=== PATIENT | male | born 1945 | race American Indian/Alaskan Native ===

== ENCOUNTER 2017-12-31 16:57 | Inpatient (IN) | payer MEDICARE ==
[2017-12-31 16:57] VITALS: BMI 26.6
[2017-12-31] MEDS ORDERED: Enoxaparin 40 mg Syringe SC STA (18:10)
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
[2017-12-31 18:27] LABS: BASO # 0.2 K/uL (0.0-0.2); BASO % 1.9 % (0.0-2.0); EOS # 0.3 K/uL (0.0-0.7); EOS % 2.7 % (0.0-4.0); HEMOGLOBIN 11.8 g/dL (12.0-18.0); LYMPH # 2.8 K/uL (1.0-4.3); LYMPH % 24.1 % (20.0-40.0); MEAN CELL VOLUME 82.7 fL (80.0-94.0); MEAN CORPUSCULAR HEMOGLOBIN 27.8 pg (27.0-31.0); MEAN CORPUSCULAR HGB CONC 33.6 g/dL (33.0-37.0); MEAN PLATELET VOLUME 8.7 fL (7.2-11.7); MONO # 4.1 K/uL (0.0-0.8); MONO % 35.5 % (0.0-10.0); NEUT # 4.1 K/uL (1.8-7.0); NEUT % 35.8 % (50.0-75.0); NRBC % 0.2 % (0.0-2.0); PLATELET COUNT 323 K/uL (130-400); RBC 4.24 Mil/uL (4.40-5.90); RED CELL DISTRIBUTION WIDTH 31.8 % (11.5-14.5); WHITE BLOOD COUNT 11.4 K/uL (4.8-10.8)
[2017-12-31] MEDS ORDERED: Enoxaparin 100 mg Syringe ONE (18:33)
[2017-12-31 18:36] LABS: ALB/GLOB RATIO 0.7 (1.0-2.1); ALT/SGPT 16 U/L (21-72); AST/SGOT 23 U/L (17-59); BLOOD UREA NITROGEN 15 mg/dL (9-20); CALCIUM 8.6 mg/dl (8.6-10.4); GFR AFRICAN-AMERICAN > 60; GFR NON-AFRICAN AMERICAN > 60
[2017-12-31 18:39] LABS: INR 1.1; PROTHROMBIN TIME 13.1 SECONDS (9.7-12.2)
[2017-12-31 18:46] LABS: B-TYPE NATRIURETIC PEPTIDE 44.1 pg/mL (0-900)
[2017-12-31] MEDS ORDERED: Piperacillin/Tazobact 3.375 gm 100 ML IV STA (18:47)
--- NOTE | 2017-12-31 18:50 | RAD ---
PROCEDURE: CHEST RADIOGRAPH, 1 VIEW HISTORY: SOB COMPARISON: None available. FINDINGS: LUNGS: Clear. PLEURA: No pneumothorax or pleural fluid seen. CARDIOVASCULAR: Normal. OSSEOUS STRUCTURES: No significant abnormalities. VISUALIZED UPPER ABDOMEN: Normal. OTHER FINDINGS: None. IMPRESSION: No active disease.
[2017-12-31] MEDS ORDERED: Piperacillin/Tazobact 3.375 gm 100 ML IVPB ONE (19:00)
[2017-12-31 19:16] LABS: SQUAMOUS EPITHIAL < 1 /hpf (0-5); URINE BILIRUBIN NEGATIVE (NEGATIVE); URINE BLOOD NEGATIVE (NEGATIVE); URINE CLARITY Clear (Clear); URINE COLOR Colorless (YELLOW); URINE GLUCOSE (UA) NORMAL (Normal); URINE LEUKOCYTE ESTERASE NEG Leu/uL (Negative); URINE PROTEIN NEGATIVE (NEGATIVE); URINE UROBILINOGEN NORMAL mg/dL (0.2-1.0)
[2017-12-31 19:19] LABS: BASOPHIL 1 % (0-2); EOSINOPHIL 3 % (0-4); LYMPHOCYTE 30 % (20-40); MONOCYTE 37 % (0-10); NEUTROPHIL 27 % (50-75); PLATELET ESTIMATE NORMAL (NORMAL); REACTIVE LYMPHOCYTES 2 % (0-0); TOTAL CELLS COUNTED 100
[2017-12-31 19:22] LABS: OVALOCYTES SLIGHT
[2017-12-31 19:23] LABS: ANISOCYTOSIS MODERATE; POLYCHROMIC SLIGHT; SCHISTOCYTES SLIGHT; SICKLE CELLS SLIGHT
[2017-12-31 19:24] LABS: ACANTHOCYTES SLIGHT; BURR CELLS SLIGHT; SPHEROCYTES SLIGHT
[2017-12-31] MEDS ORDERED: Piperacillin/Tazobact 3.375 GM in Sodium Chloride 100 ML IVPB SCH (20:15)
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
[2017-12-31] MEDS ORDERED: Iodixanol 320 MG/ML 100 ML BOTTLE IV ONE (20:39)
[2018-01-01] MEDS: Piperacill/Tazo 3.375gm in Dex 3.375 GM/50 ML BAG IVPB SCH ×4 (00:13→18:57)
[2018-01-01 07:20] LABS: BASO # 0.2 K/uL (0.0-0.2); BASO % 1.7 % (0.0-2.0); EOS # 0.3 K/uL (0.0-0.7); EOS % 2.7 % (0.0-4.0); HEMOGLOBIN 10.9 g/dL (12.0-18.0); LYMPH # 2.7 K/uL (1.0-4.3); LYMPH % 26.1 % (20.0-40.0); MEAN CELL VOLUME 81.9 fL (80.0-94.0); MEAN CORPUSCULAR HEMOGLOBIN 28.1 pg (27.0-31.0); MEAN CORPUSCULAR HGB CONC 34.3 g/dL (33.0-37.0); MEAN PLATELET VOLUME 9.3 fL (7.2-11.7); MONO % 38.6 % (0.0-10.0); NEUT # 3.2 K/uL (1.8-7.0); NEUT % 30.9 % (50.0-75.0); NRBC % 0.1 % (0.0-2.0); PLATELET COUNT 294 K/uL (130-400); RBC 3.86 Mil/uL (4.40-5.90); RED CELL DISTRIBUTION WIDTH 32.2 % (11.5-14.5); WHITE BLOOD COUNT 10.3 K/uL (4.8-10.8)
[2018-01-01 07:55] LABS: ALB/GLOB RATIO 0.7 (1.0-2.1); ALBUMIN 3.7 g/dL (3.5-5.0); ALT/SGPT 12 U/L (21-72); AST/SGOT 22 U/L (17-59); BLOOD UREA NITROGEN 15 mg/dL (9-20); CALCIUM 8.2 mg/dl (8.6-10.4); GFR AFRICAN-AMERICAN > 60; GFR NON-AFRICAN AMERICAN > 60; HDL CHOLESTEROL 30 mg/dL (30-70)
[2018-01-01 08:02] LABS: LDL CHOLESTEROL 90 mg/dL (0-129)
--- NOTE | 2018-01-01 08:05 | CP.PCM.PN ---
<Janett Guerra - Last Filed: 01/01/18 14:22> Subjective - Date & Time of Evaluation Date of Evaluation: 01/01/18 Time of Evaluation: 12:45 - Subjective Subjective: PGY 2 Medicine Note- Dr. Mayra Maloney's service Patient seen and examined in no apparent acute distress. Patient had imaging studies performed. Patient admits to some lower extremity discomfort. Patient states that he occasionally has trouble ambulating at home due to heel related pain secondary to swelling; but is able to manage. He denies chest pain, palpitations, nausea, vomiting, headaches or dyspnea at this time. Objective - Vital Signs/Intake and Output Vital Signs (last 24 hours): Temp Pulse Resp BP Pulse Ox 0 F L 70 20 118/70 100 01/01/18 07:55 01/01/18 07:55 01/01/18 07:55 01/01/18 07:55 01/01/18 07:55 - Medications Medications: Current Medications Enoxaparin Sodium (Lovenox) 90 mg SC Q12 ERMA Furosemide (Lasix) 40 mg IVP DAILY [facility] Piperacillin Sod/Tazobactam Sod (Zosyn 3.375 Gm Iv Premix) 3.375 gm in 50 mls @ 100 mls/hr IVPB Q6H ERMA Last Admin: 01/01/18 06:11 Dose: 100 mls/hr Ketorolac Tromethamine (Toradol) 30 mg IV Q6 PRN PRN Reason: Pain, severe (8-10) Last Admin: 01/01/18 06:10 Dose: 30 mg Ketorolac Tromethamine (Toradol) 15 mg IVP Q6 PRN PRN Reason: Pain, moderate (4-7) Pantoprazole Sodium (Protonix Ec Tab) 40 mg PO DAILY [facility] Pneumococcal Polyvalent Vaccine (Pneumovax 23 Vaccine) 0.5 ml IM .ONCE ONE Stop: 01/02/18 10:01 Saccharomyces Boulardii (Florastor) 250 mg PO BID ERMA - Labs Labs: 01/01/18 07:07 01/01/18 07:07 PT 13.1 SECONDS (9.7-12.2) H 12/31/17 18:18 INR 1.1 12/31/17 18:18 APTT 30 SECONDS (21-34) 12/31/17 18:18 - Constitutional Appears: Non-toxic, No Acute Distress - Head Exam Head Exam: ATRAUMATIC, NORMAL INSPECTION - Eye Exam Eye Exam: EOMI, Normal appearance, PERRL - ENT Exam ENT Exam: Mucous Membranes Moist - Neck Exam Neck Exam: Full ROM - Respiratory Exam Respiratory Exam: Clear to Ausculation Bilateral, NORMAL BREATHING PATTERN - Cardiovascular Exam Cardiovascular Exam: +S1, +S2 Additional comments: occasional premature beats noted; no apparent audible murmur - GI/Abdominal Exam GI & Abdominal Exam: Soft, Normal Bowel Sounds - Extremities Exam Extremities Exam: Full ROM, Pedal Edema (2+ pitting edema noted extending from feet to approx 4-5 inches below the knee), Tenderness (with superficial palpation). absent: Normal Inspection - Back Exam Back Exam: Full ROM - Neurological Exam Neurological Exam: Alert, Awake, Oriented x3 - Psychiatric Exam Psychiatric exam: Normal Affect, Normal Mood - Skin Skin Exam: Dry. absent: Intact, Normal Color Additional comments: hyperkeratosis and hyperpigmentation of bilateral shins, dry; dressing noted, c/ d/i Assessment and Plan - Assessment and Plan (Free Text) Assessment: Chronic wound of extremity Assessment and Plan: Hx of DVT in lower extremity Afebrile, No-acute distress Rule out Osteomyelitis- No evidence of subcutaneous emphysema. Recommendations for further imaging suggested. Will consider Bone scan in light of contraindications for MRI. (Patient has metal rods in his leg) Podiatry consult, Dr Raymond. Follow-up recommendations. Nursing referral for wound care F/U Blood and Wound cultures On: Zosyn 3.375g IVPB Q6H Lasix 40mg IVP QD Ketorolac 15mg IVP Q6 PRN moderate pain Ketorolac 30mg IVP Q6H PRN severe pain Status: Acute Priority: High Chronic DVT Assessment and Plan: Venous Dopplers- left partial chronic , non- occlusive DVT of the left common femoral, femoral and popliteal veins. Mild valvular incompetence noted. Part of the study was limited due to swelling. No evidence of DVT in right lower extremity. Refer to complete report. Arterial dopplers- Normal Study Elevated D-Dimer 1148. Imaging: CTA PE Protocol- No apparent signs of PE. Per report, many of the distal pulmonary arteries are poorly visualized. Calcified tortuous aorta noted. Refer to complete report. Meds: Lovenox 90mg SC Q12H Status: Acute Priority: High Suspected Premature atrial beats Assessment and Plan: On Telemetry- Continue to monitor EKG: Sinus rhythm at approx 77 bpm, early signs of repolarization noted. No signs of atrial fibrillation or flutter noted. No ST segment changes noted. Refer to imaging. Labs/Diagnostics: Trop x1 NORMAL ProBNP NORMAL CXR: No active disease F/U ECHO Status: Acute Priority: High (4) Prophylactic measure Assessment and Plan: Contraindication to SCDs Lovenox 90mg SC Q12H Heart healthy diet Status: Acute Priority: Low [place], PGY 2 <Sagar Maloney - Last Filed: 01/01/18 15:07> Objective - Vital Signs/Intake and Output Vital Signs (last 24 hours): Temp Pulse Resp BP Pulse Ox 0 F L 70 20 122/70 100 01/01/18 07:55 01/01/18 08:00 01/01/18 07:55 01/01/18 09:30 01/01/18 07:55 - Medications Medications: Current Medications Enoxaparin Sodium (Lovenox) 90 mg SC Q12 [facility] Last Admin: 01/01/18 09:30 Dose: 90 mg Furosemide (Lasix) 40 mg IVP DAILY [facility] Last Admin: 01/01/18 09:30 Dose: 40 mg Piperacillin Sod/Tazobactam Sod (Zosyn 3.375 Gm Iv Premix) 3.375 gm in 50 mls @ 100 mls/hr IVPB Q6H [facility] Last Admin: 01/01/18 14:00 Dose: 100 mls/hr Ketorolac Tromethamine (Toradol) 30 mg IV Q6 PRN PRN Reason: Pain, severe (8-10) Last Admin: 01/01/18 12:22 Dose: 30 mg Ketorolac Tromethamine (Toradol) 15 mg IVP Q6 PRN PRN Reason: Pain, moderate (4-7) Pantoprazole Sodium (Protonix Ec Tab) 40 mg PO DAILY [facility] Last Admin: 01/01/18 09:30 Dose: 40 mg Pneumococcal Polyvalent Vaccine (Pneumovax 23 Vaccine) 0.5 ml IM .ONCE ONE Stop: 01/02/18 10:01 Saccharomyces Boulardii (Florastor) 250 mg PO BID [facility] Last Admin: 01/01/18 09:30 Dose: 250 mg - Labs Labs: 01/01/18 07:07 01/01/18 07:07 PT 13.1 SECONDS (9.7-12.2) H 12/31/17 18:18 INR 1.1 12/31/17 18:18 APTT 30 SECONDS (21-34) 12/31/17 18:18 Attending/Attestation - Attestation I have personally seen and examined this patient.: Yes I have fully participated in the care of the patient.: Yes I have reviewed all pertinent clinical information, including history, physical exam and plan: Yes Notes (Text): 01/01/18 14:54 Patient was seen and examined at 8 AM Also on ROS: Pain the bilateral lower legs and feet is controlled at this time. However, he explains that the pain is always present but could not describe the pain to me nor what makes it better or what makes it worse He has no paresthesias NO other complaints upon FULL ROS Also on Exam: Bilateral UE Radial Pulses are strong and equal Bilateral LE Pedal Pulses are NOT palpable Bilateral LE NON-pitting edema with Right > Left Bilateral LE thickened/hardened/darkened skin from the mid tibia to the feet Right LE Anterior and Medial Aspect are prior surgical scars/cratered areas with NO open wounds present Left LE superior to the Medial Malleoli there is a 1 cm shallow ulcer circular in shape on a bed of pink irregularly shaped skin (prior area of ulceration as per patient) F/U Bilateral LE Venous Doppler to rule out any DVTs: he has a history of Left Leg DVT in the past with stopping coumadin 1 year ago by his PMD F/U Bilateral LE Arterial Dopplers to help diagnose the possibility of Peripheral Arterial Disease as the possible cause of his LE pain F/U 2D Echocardiogram F/U Tibia/Fibula X Ray of Left Leg to see if there is any evidence of Osteomyelitis (Periosteal Elevation): we can NOT perform MRI due to metal hardware in the patients Right Leg from his injury while at work in 1983 F/U ESR and if elevated, then consider getting NM Bone Scan of Left Lower Leg/ Ankle on Wednesday01/03/18 to help rule out Osteomyelitis F/U PT evaluation and treatment for gait Sagar Maloney D.O.
[2018-01-01] MEDS: Pantoprazole 40 mg EC Tab PO SCH (09:30)
[2018-01-01] MEDS: Saccharomyces Boulardi 250 mg Cap PO SCH ×2 (09:30→18:57)
[2018-01-01] MEDS: Enoxaparin 100 mg Syringe SC SCH ×2 (09:30→21:24)
[2018-01-01 10:31] LABS: EOSINOPHIL 1 % (0-4); LYMPHOCYTE 26 % (20-40); MONOCYTE 36 % (0-10); NEUTROPHIL 36 % (50-75); PLATELET ESTIMATE NORMAL (NORMAL); REACTIVE LYMPHOCYTES 1 % (0-0); TOTAL CELLS COUNTED 100
[2018-01-01 10:32] LABS: ANISOCYTOSIS MARKED; HYPOCHROMIC SLIGHT; POLYCHROMIC SLIGHT
[2018-01-01 10:33] LABS: GIANT PLATELETS PRESENT; LARGE PLATELETS PRESENT; OVALOCYTES SLIGHT; POIKILOCYTOSIS SLIGHT; SCHISTOCYTES SLIGHT; TARGET CELLS SLIGHT
[2018-01-01 10:34] LABS: TOXIC GRANULATION PRESENT
--- NOTE | 2018-01-01 11:31 | CT ---
PROCEDURE: CT Chest with contrast (Pulmonary Angiogram) HISTORY: Elevated d-dimer; hx of DVT; tachy COMPARISON: None available. TECHNIQUE: Axial computed tomography images were obtained of the chest in the pulmonary arterial phase of enhancement. Coronal and sagittal reformatted images were created and reviewed. Intravenous contrast dose: 100 cc Visipaque 320 Radiation dose: Total exam DLP = 444.85 mGy-cm. This CT exam was performed using one or more of the following dose reduction techniques: Automated exposure control, adjustment of the mA and/or kV according to patient size, and/or use of iterative reconstruction technique. FINDINGS: PULMONARY ARTERIES: Unremarkable. No pulmonary embolism. The the visualized portions of the pulmonary trunk, right and left main, lobar, segmental and proximal subsegmental branches of the pulmonary arteries are relatively well opacified with no definitive filling defects seen to suggest underlying central pulmonary embolus. Note however that the distal branches of the pulmonary arteries are poorly delineated. Pulmonary trunk measures approximately 2.9 cm. AORTA: No acute findings. No thoracic aortic aneurysm. Ascending thoracic aorta measures approximately 3.68 cm and descending thoracic aorta measures approximately 2.865 cm. The the LUNGS: Multiple blebs and tiny bullous changes are present in both upper lung campo possibly representing para septal emphysema. Mild bibasilar atelectasis and or scarring changes. . PLEURAL SPACES: Unremarkable. No effusion or pneumothorax. HEART: Heart appears mildly enlarged. No significant pericardial effusion. LYMPH NODES: Few small nonspecific mediastinal lymph nodes are present. No significant hilar adenopathy. Lymphadenopathy. BONES, CHEST WALL: Minor multilevel degenerative spondylosis of the thoracic spine. OTHER FINDINGS: Small bilateral renal cysts are present. There is a more discrete hyperdense elliptical shaped partially exophytic structure arising from the posterolateral cortex upper/midpole right kidney that measures approximately 9.6 mm x 7 mm. This could represent hyperdense or hemorrhagic cyst however solid lesion not excluded. Followup ultrasound recommended to exclude any solid components. IMPRESSION: No evidence of acute the central pulmonary embolus. Note however that the distal pulmonary arteries are poorly delineated. Numerous below blebs and small bullous changes both upper lung campo. Rule out seen Bilateral renal cysts. There is also a small more discrete hyperdense structure arising from the posterolateral cortex upper/ midpole right kidney partially exophytic. This could represent hyperdense or hemorrhagic cyst however the possibility of a solid mass not excluded. Recommend follow-up ultrasound. Note that this report was placed in [facility] review folder followup.
--- NOTE | 2018-01-01 12:49 | VASCLAB ---
PROCEDURE: Lower Extremity Venous Duplex Exam. HISTORY: Swelling, history of DVT, elevated d-dimer PRIORS: None. TECHNIQUE: Bilateral common femoral, femoral, popliteal and posterior tibial, peroneal and great saphenous veins were evaluated. Flow was assessed with color Doppler, compressibility, assessment of phasic flow and augmentation response. Report prepared by ANGELA Oviedo FINDINGS: RIGHT: 1. Common Femoral Vein: 1.1. Compressibility - Fully compressible: Thrombus - None : Flow - Phasic: Augmentation -Normal: Reflux - Mild.1.02s 2. Femoral Vein: 2.1. Compressibility - Fully compressible: Thrombus - None : Flow - Phasic: Augmentation -Normal: Reflux - Mild.1.55s 3. Popliteal Vein: 3.1. Compressibility - Fully compressible: Thrombus - None : Flow - Phasic: Augmentation -Normal: Reflux - Mild.1.50s 4. Posterior Tibial Vein: 4.1. Unable to visualize due to swelling. 5. Peroneal Vein: 5.1. Unable to visualize due to swelling. 6. Great Saphenous Vein: 6.1. Compressibility - Fully compressible: Thrombus - None: Flow - Phasic: Augmentation - Normal: Reflux - None. LEFT: 1. Common Femoral Vein: 1.1. Compressibility - Partial: Thrombus - Chronic: Flow - Reduced : Augmentation -Normal: Reflux - None. 2. Femoral Vein: 2.1. Compressibility - Partial: Thrombus - Chronic: Flow - Reduced : Augmentation -Normal: Reflux - None. 3. Popliteal Vein: 3.1. Compressibility - Partial: Thrombus - Chronic : Flow - Reduced : Augmentation -Normal: Reflux - Mild.1.07s 4. Posterior Tibial Vein: 4.1. Compressibility - Fully compressible: Thrombus - None: Flow - Phasic: Augmentation -Normal: Reflux - None. 5. Peroneal Vein: 5.1. Compressibility - Fully compressible: Thrombus - None: Flow - Phasic: Augmentation -Normal: Reflux - None. 6. Great Saphenous Vein: 6.1. Compressibility - Fully compressible: Thrombus - None: Flow - Phasic: Augmentation - Normal: Reflux - None. OTHER FINDINGS: Findings were provided by the radiographic technologist, to Satish Puente at 12:00 p.m. IMPRESSION: Right: No evidence of deep or superficial vein thrombosis of the right lower extremity, for the imaged veins. Mild valvular incompetence noted. Left: Partial chronic, non occlusive, deep vein thrombosis of the left common femoral, femoral and popliteal veins. Mild valvular incompetence noted.
--- NOTE | 2018-01-01 12:50 | VASCLAB ---
PROCEDURE: HISTORY: Rest pain, Ulceration. COMPARISON: None available. TECHNIQUE: Grayscale and duplex Doppler evaluation of the bilateral common femoral, femoral, profunda femoral, popliteal, posterior tibial, anterior tibial and dorsalis pedis arteries was performed. Report prepared by ANGELA Oviedo FINDINGS: RIGHT LOWER EXTREMITY: * Common Femoral Artery: Peak Systolic Velocity - 109: Doppler Waveform: Triphasic.: Plaque description - Calcific * Profunda Femoral Artery: Peak Systolic Velocity - 91: Doppler Waveform: Biphasic.: Plaque description - * Femoral Artery o Proximal Segment: Peak Systolic Velocity - 127: Doppler Waveform: Triphasic.: Plaque description - Calcific o Middle Segment: Peak Systolic Velocity - 149: Doppler Waveform: Triphasic.: Plaque description - Calcific o Distal Segment: Peak Systolic Velocity - 85: Doppler Waveform: Triphasic.: Plaque description - Calcific * Popliteal Artery o Proximal Segment: Peak Systolic Velocity - 117: Doppler Waveform: Monophasic: Plaque description - o Middle Segment: Peak Systolic Velocity - 69: Doppler Waveform: Monophasic: Plaque description - o Distal Segment: Peak Systolic Velocity - 73: Doppler Waveform: Monophasic: Plaque description - * Posterior Tibial Artery: Unable to visualize due to swelling. * Anterior Tibial Artery: Peak Systolic Velocity - 101: Doppler Waveform: Monophasic: Plaque description - LEFT LOWER EXTREMITY: * Common Femoral Artery: Peak Systolic Velocity - 105: Doppler Waveform: Triphasic.: Plaque description - Calcific * Profunda Femoral Artery: Peak Systolic Velocity - 86: Doppler Waveform: Biphasic.: Plaque description - * Femoral Artery o Proximal Segment: Peak Systolic Velocity - 109: Doppler Waveform: Triphasic.: Plaque description - Calcific o Middle Segment: Peak Systolic Velocity - 136: Doppler Waveform: Triphasic.: Plaque description - Calcific o Distal Segment: Peak Systolic Velocity - 102: Doppler Waveform: Monophasic: Plaque description - Calcific * Popliteal Artery o Proximal Segment: Peak Systolic Velocity - 92: Doppler Waveform: Monophasic: Plaque description - o Middle Segment: Peak Systolic Velocity - 102: Doppler Waveform: Monophasic: Plaque description - o Distal Segment: Peak Systolic Velocity - 98: Doppler Waveform: Monophasic: Plaque description - * Posterior Tibial Artery: Peak Systolic Velocity - 155: Doppler Waveform: Monophasic: Plaque description - * Anterior Tibial Artery: Peak Systolic Velocity - 104: Doppler Waveform: Monophasic: Plaque description - OTHER FINDINGS: None. IMPRESSION: The major arteries in bilateral lower extremities appear patent however, with monophasic arterial waveforms.
--- NOTE | 2018-01-01 13:12 | RAD ---
PROCEDURE: Radiographs of the left tibia and fibula. HISTORY: Left Lower Leg Ulcer. R rule out early signs of osteomyelitis COMPARISON: None available. TECHNIQUE: Frontal and lateral views obtained. FINDINGS: BONES: No evidence of acute displaced fracture nor dislocation. The osseous structures appear intact. No obvious cortical destructive changes. JOINT SPACES: Joint spaces relatively preserved. OTHER FINDINGS: Nonspecific calcifications are seen in the distal medial soft tissues. No evidence of subcutaneous emphysema consider followup MRI if early osteomyelitis IMPRESSION: No evidence of acute displaced fracture nor dislocation. No obvious cortical destructive changes. Nonspecific soft tissue calcifications adjacent to the medial on distal tibia. Consider followup MRI if early osteomyelitis suspected clinically.
--- NOTE | 2018-01-01 14:13 | CP.PCM.CON ---
History of Present Illness - History of Present Illness History of Present Illness: 72 year old male with PMHx asthma, HTN, multiple DVTs seen at bedside after being admitted through ED yesterday for recent onset of left lower leg pain and edema. Patient states that the pain has been increasing over the last several days. He denies pain to his posterior calf and says that the pain is mostly at the site of a wound on his anterior left leg and also near his ankle when he is walking. Patient also states that he has noticed his left leg swelling up over the last week or so. He denies any history of CHF but states that he has had multiple DVTs in the past. Denies any further pedal complaints at this time and states that his pain is well controlled. Denies any recent onset of N/V/F/C/CP/ SOB/D/posterior calf pain when squeezed or hemoptysis. Denies any current at home medications. NKDA. Previous surgical history of right leg reconstruction following a work related incident, wound debridement of left leg as well as venous filter placement. Review of Systems - Review of Systems Review of Systems: As per HPI Past Patient History - Infectious Disease Hx of Infectious Diseases: None - Past Medical History & Family History Past Medical History?: Yes - Past Social History Smoking Status: Light Smoker < 10 Cigarettes Daily - CARDIAC Hx Hypertension: Yes (no meds) - PULMONARY Hx Asthma: Yes (when younger) - NEUROLOGICAL Hx Neurological Disorder: No - HEENT Hx HEENT Problems: No - RENAL Hx Chronic Kidney Disease: No - ENDOCRINE/METABOLIC Hx Endocrine Disorders: No - HEMATOLOGICAL/ONCOLOGICAL Hx Blood Transfusions: No - INTEGUMENTARY Hx Dermatological Problems: Yes Other/Comment: " INJURY TO LEFT LEG IN 1983 WHEN HE FELL THRU A MANHOLE COVER. AFTER ACCIDENT HE DEVELOPED A DVT WITH CHRONIC SWELLING TO LEFT LEG." (PER MED RECORD.) - MUSCULOSKELETAL/RHEUMATOLOGICAL Hx Falls: No - GASTROINTESTINAL Hx Gastrointestinal Disorders: No - GENITOURINARY/GYNECOLOGICAL Hx Genitourinary Disorders: No - PSYCHIATRIC Hx Substance Use: No - SURGICAL HISTORY Other/Comment: skin grafdt right ankle - ANESTHESIA Hx Anesthesia: Yes Hx Anesthesia Reactions: No Hx Malignant Hyperthermia: No Has any member of the family had a problem w/ anesthesia?: No Meds Allergies/Adverse Reactions: Allergies Allergy/AdvReac Type Severity Reaction Status Date / Time No Known Allergies Allergy Verified 12/31/17 17:01 - Medications Medications: Current Medications Enoxaparin Sodium (Lovenox) 90 mg SC Q12 [facility] Last Admin: 01/01/18 09:30 Dose: 90 mg Furosemide (Lasix) 40 mg IVP DAILY [facility] Last Admin: 01/01/18 09:30 Dose: 40 mg Piperacillin Sod/Tazobactam Sod (Zosyn 3.375 Gm Iv Premix) 3.375 gm in 50 mls @ 100 mls/hr IVPB Q6H [facility] Last Admin: 01/01/18 06:11 Dose: 100 mls/hr Ketorolac Tromethamine (Toradol) 30 mg IV Q6 PRN PRN Reason: Pain, severe (8-10) Last Admin: 01/01/18 12:22 Dose: 30 mg Ketorolac Tromethamine (Toradol) 15 mg IVP Q6 PRN PRN Reason: Pain, moderate (4-7) Pantoprazole Sodium (Protonix Ec Tab) 40 mg PO DAILY [facility] Last Admin: 01/01/18 09:30 Dose: 40 mg Pneumococcal Polyvalent Vaccine (Pneumovax 23 Vaccine) 0.5 ml IM .ONCE ONE Stop: 01/02/18 10:01 Saccharomyces Boulardii (Florastor) 250 mg PO BID [facility] Last Admin: 01/01/18 09:30 Dose: 250 mg Physical Exam - Constitutional Appears: Well, Non-toxic, No Acute Distress - Extremities Exam Additional comments: LE focused exam: Vasc: DP/PT pulses weakly palpable secondary to b/l edema. CFT < 3 seconds to all digits. Skin temperature warm to warm from proximal to distal. Neuro: Epicritic and protective sensation grossly intact b/l Derm: Cicatrix noted to anterior right leg secondary to previous traumatic event with reconstruction. Healing wound noted to anterior portion of right leg. No clinical signs of infection noted to wound and no open noted at wound site. Wound appears stable at this time. Venous stasis ulceration measuring roughly 1 cm x 1 cm x 0.1 cm noted to medial aspect of left leg. No malodor, no drainage, no erythema, no other clinical signs of infection noted. No probe to bone, undermining, tracking or tunneling appreciated. MSK: POP to ulceration of left leg. Cicatrix noted to right leg secondary to traumatic reconstruction of leg. Otherwise ROM WNLfor age at all major joints without pain - Neurological Exam Neurological exam: Alert, Oriented x3 - Psychiatric Exam Psychiatric exam: Normal Affect, Normal Mood Results - Vital Signs Recent Vital Signs: Last Vital Signs Temp 0 F L 01/01/18 07:55 Pulse 70 01/01/18 08:00 Resp 20 01/01/18 07:55 BP 122/70 01/01/18 09:30 Pulse Ox 100 01/01/18 07:55 - Labs Result Diagrams: 01/01/18 07:07 01/01/18 07:07 Labs: Laboratory Results - last 24 hr 12/31/17 12/31/17 12/31/17 18:18 18:18 18:18 WBC 11.4 H D RBC 4.24 L Hgb 11.8 L Hct 35.0 MCV 82.7 MCH 27.8 MCHC 33.6 RDW 31.8 H Plt Count 323 MPV 8.7 Neut % (Auto) 35.8 L Lymph % (Auto) 24.1 [place] % (Auto) 35.5 H Eos % (Auto) 2.7 Baso % (Auto) 1.9 Neut # (Auto) 4.1 Lymph # (Auto) 2.8 [place] # (Auto) 4.1 H Eos # (Auto) 0.3 Baso # (Auto) 0.2 Neutrophils % (Manual) 27 L Lymphocytes % (Manual) 30 Reactive Lymphs % 2 H Monocytes % (Manual) 37 H Eosinophils % (Manual) 3 Basophils % (Manual) 1 Toxic Granulation Platelet Estimate Normal Large Platelets Giant Platelets Polychromasia Slight Hypochromasia (manual) Poikilocytosis (manual Anisocytosis (manual) Moderate Spherocytes Slight Sickle Cells Slight Target Cells Ovalocytes Slight Molly Cells Slight Acanthocytes (Spur) Slight Schistocytes Slight PT 13.1 H INR 1.1 APTT 30 D-Dimer, Quantitative 1148 H Sodium 141 Potassium 4.1 Chloride 104 Carbon Dioxide 24 Anion Gap 17 BUN 15 Creatinine 1.0 Est GFR ( Amer) > 60 Est GFR (Non-Af Amer) > 60 Random Glucose 94 Calcium 8.6 Total Bilirubin 0.4 AST 23 ALT 16 L D Alkaline Phosphatase 79 Troponin I < 0.0120 NT-Pro-B Natriuret Pep 44.1 Total Protein 9.9 H Albumin 4.0 Globulin 5.8 H Albumin/Globulin Ratio 0.7 L Triglycerides Cholesterol LDL Cholesterol Direct HDL Cholesterol Free T4 TSH 3rd Generation Urine Color Urine Clarity Urine pH Ur Specific [place] Urine Protein Urine Glucose (UA) Urine Ketones Urine Blood Urine Nitrate Urine Bilirubin Urine Urobilinogen Ur Leukocyte Esterase Urine WBC (Auto) Ur Squamous Epith Cells 12/31/17 01/01/18 01/01/18 19:11 07:07 07:07 WBC 10.3 RBC 3.86 L Hgb 10.9 L Hct 31.6 L MCV 81.9 MCH 28.1 MCHC 34.3 RDW 32.2 H Plt Count 294 MPV 9.3 Neut % (Auto) 30.9 L Lymph % (Auto) 26.1 [place] % (Auto) 38.6 H Eos % (Auto) 2.7 Baso % (Auto) 1.7 Neut # (Auto) 3.2 Lymph # (Auto) 2.7 [place] # (Auto) 4.0 H Eos # (Auto) 0.3 Baso # (Auto) 0.2 Neutrophils % (Manual) 36 L Lymphocytes % (Manual) 26 Reactive Lymphs % 1 H Monocytes % (Manual) 36 H Eosinophils % (Manual) 1 Basophils % (Manual) Toxic Granulation Present Platelet Estimate Normal Large Platelets Present Giant Platelets Present Polychromasia Slight Hypochromasia (manual) Slight Poikilocytosis (manual Slight Anisocytosis (manual) Marked Spherocytes Sickle Cells Target Cells Slight Ovalocytes Slight [place] Cells Acanthocytes (Spur) Schistocytes Slight PT INR APTT D-Dimer, Quantitative Sodium 142 Potassium 3.6 Chloride 102 Carbon Dioxide 24 Anion Gap 19 BUN 15 Creatinine 1.1 Est GFR ( Amer) > 60 Est GFR (Non-Af Amer) > 60 Random Glucose 90 Calcium 8.2 L Total Bilirubin 0.5 AST 22 ALT 12 L D Alkaline Phosphatase 68 Troponin I NT-Pro-B Natriuret Pep Total Protein 8.6 H Albumin 3.7 Globulin 5.0 H Albumin/Globulin Ratio 0.7 L Triglycerides 50 D Cholesterol 136 LDL Cholesterol Direct 90 HDL Cholesterol 30 Free T4 TSH 3rd Generation 3.89 Urine Color Colorless Urine Clarity Clear Urine pH 6.0 Ur Specific [place] 1.004 Urine Protein Negative Urine Glucose (UA) Normal Urine Ketones Negative Urine Blood Negative Urine Nitrate Negative Urine Bilirubin Negative Urine Urobilinogen Normal Ur Leukocyte Esterase Neg Urine WBC (Auto) < 1 Ur Squamous Epith Cells < 1 01/01/18 07:07 WBC RBC Hgb Hct MCV MCH MCHC RDW Plt Count MPV Neut % (Auto) Lymph % (Auto) [place] % (Auto) Eos % (Auto) Baso % (Auto) Neut # (Auto) Lymph # (Auto) [place] # (Auto) Eos # (Auto) Baso # (Auto) Neutrophils % (Manual) Lymphocytes % (Manual) Reactive Lymphs % Monocytes % (Manual) Eosinophils % (Manual) Basophils % (Manual) Toxic Granulation Platelet Estimate Large Platelets Giant Platelets Polychromasia Hypochromasia (manual) Poikilocytosis (manual Anisocytosis (manual) Spherocytes Sickle Cells Target Cells Ovalocytes [place] Cells Acanthocytes (Spur) Schistocytes PT INR APTT D-Dimer, Quantitative Sodium Potassium Chloride Carbon Dioxide Anion Gap BUN Creatinine Est GFR ( Amer) Est GFR (Non-Af Amer) Random Glucose Calcium Total Bilirubin AST ALT Alkaline Phosphatase Troponin I NT-Pro-B Natriuret Pep Total Protein Albumin Globulin Albumin/Globulin Ratio Triglycerides Cholesterol LDL Cholesterol Direct HDL Cholesterol Free T4 1.20 TSH 3rd Generation Urine Color Urine Clarity Urine pH Ur Specific [place] Urine Protein Urine Glucose (UA) Urine Ketones Urine Blood Urine Nitrate Urine Bilirubin Urine Urobilinogen Ur Leukocyte Esterase Urine WBC (Auto) Ur Squamous Epith Cells Assessment & Plan - Assessment and Plan (Free Text) Assessment: 72 year old male with PMHx asthma, HTN, multiple DVTs seen at bedside for clinically non-infected venous stasis ulceration of left leg Plan: Patient seen and evaluated at bedside Charts, labs and vitals reviewed Afebrile, absent leukocytosis D-dimer elevated 1148 Multiple DVTs of LLE seen on venous duplex Continue treatment per Medicine team It is thought that venous stasis ulceration of left leg is secondary to edematous changes. No compressive wound care therapy will be applied at this time given the fact that patient has DVTs Continue with diuresis per medicine for decrease in b/l LE edema Xrays reviewed and found to be unremarkable Arterial duplex findings appreciated No plans for surgical intervention at this time Wound site stable per podiatry and patient can follow up with Dr. Raymond upon discharge Podiatry will continue with local wound care to ulceration site while patient remains in house, DSD - Date & Time Date: 01/01/18 Time: 14:26
--- NOTE | 2018-01-01 17:29 | RAD ---
PROCEDURE: Bilateral feet dated 01/01/2018 HISTORY: Assess for osteomyelitis left ankle/foot COMPARISON: Correlation made with prior radiographs left foot 04/19/2015. Re- demonstrated correlation also made with concurrent radiographs of the left tibia and fibula. FINDINGS: BONES: Right foot findings: The current study reveals chronic on deformities of the distal tibia and fibula possibly representing sequela of old trauma and/or infection with thumb apparent fusion changes of the distal fibula and tibia. Multi articular degenerative osteoarthritis. Extension deformities at the MTP joints limit evaluation of the proximal phalanges of. Minor hallux valgus deformity. Left foot findings: The current study reveals no evidence of acute displaced fracture nor dislocation. The osseous structures appear intact. No definitive cortical destructive changes are identified. Again seen are nonspecific soft tissue calcifications within the medial distal soft tissues. Extension deformities of the MTP joints noted limiting evaluation of the proximal phalanges. Mild hallux valgus deformity. If symptoms persist or early osteomyelitis suspected clinically consider followup MRI. IMPRESSION: Chronic posttraumatic and/or post infectious changes involving the distal right tibia and fibula. Soft tissue calcifications are within distal medial soft tissues of the left tibia fibula with no definitive cortical destructive changes. Recommend followup MRI if early osteomyelitis suspected clinically.
[2018-01-02] MEDS: Piperacill/Tazo 3.375gm in Dex 3.375 GM/50 ML BAG IVPB SCH ×4 (00:59→18:30)
--- NOTE | 2018-01-02 07:35 | CP.PCM.PN ---
Subjective - Date & Time of Evaluation Date of Evaluation: 01/02/18 Time of Evaluation: 07:31 - Subjective Subjective: Podiatry progress note- Dr. Raymond 72 year old male with PMHx asthma, HTN, multiple DVTs seen at bedside after being admitted through ED yesterday for recent onset of left lower leg pain and edema. Patient is AAO x 3 and NAD, resting comfortably in bed at time of visit. Denies any acute overnight events and states that pain is well controlled. Denies any further pedal complaints at this time. Denies any recent N/V/F/C/CP/ SOB/D/posterior calf pain when squeezed Objective - Vital Signs/Intake and Output Vital Signs (last 24 hours): Temp Pulse Resp BP Pulse Ox 97.7 F 84 20 153/68 H 96 01/01/18 23:15 01/01/18 23:56 01/01/18 23:15 01/01/18 23:15 01/01/18 23:15 - Medications Medications: Current Medications Enoxaparin Sodium (Lovenox) 90 mg SC Q12 [facility] Last Admin: 01/01/18 21:24 Dose: 90 mg Furosemide (Lasix) 40 mg IVP DAILY [facility] Last Admin: 01/01/18 09:30 Dose: 40 mg Piperacillin Sod/Tazobactam Sod (Zosyn 3.375 Gm Iv Premix) 3.375 gm in 50 mls @ 100 mls/hr IVPB Q6H [facility] Last Admin: 01/02/18 06:05 Dose: 100 mls/hr Ketorolac Tromethamine (Toradol) 30 mg IV Q6 PRN PRN Reason: Pain, severe (8-10) Last Admin: 01/02/18 05:19 Dose: 30 mg Ketorolac Tromethamine (Toradol) 15 mg IVP Q6 PRN PRN Reason: Pain, moderate (4-7) Last Admin: 01/01/18 21:23 Dose: 15 mg Mupirocin (Bactroban Ointment) 0 gm TOP ONCE ONE Stop: 01/02/18 10:01 Pantoprazole Sodium (Protonix Ec Tab) 40 mg PO DAILY [facility] Last Admin: 01/01/18 09:30 Dose: 40 mg Pneumococcal Polyvalent Vaccine (Pneumovax 23 Vaccine) 0.5 ml IM .ONCE ONE Stop: 01/02/18 10:01 Saccharomyces Boporshadii (Florastor) 250 mg PO BID [facility] Last Admin: 01/01/18 18:57 Dose: 250 mg - Labs Labs: 01/01/18 07:07 01/01/18 07:07 PT 13.1 SECONDS (9.7-12.2) H 12/31/17 18:18 INR 1.1 12/31/17 18:18 APTT 30 SECONDS (21-34) 12/31/17 18:18 - Constitutional Appears: Well, Non-toxic, No Acute Distress - Extremities Exam Additional comments: LE focused exam: Vasc: DP/PT pulses weakly palpable secondary to b/l edema. Edema noted to be improved today b/l. CFT < 3 seconds to all digits. Skin temperature warm to warm from proximal to distal. Neuro: Epicritic and protective sensation grossly intact b/l Derm: Cicatrix noted to anterior right leg secondary to previous traumatic event with reconstruction. Healing wound that wasn noted to anterior portion of right leg yesterday is now open with minimal bleeding. No erythema, purulence, drainage, malodor or other clinical signs of infection appreciated. No clinical signs of infection noted to wound Wound appears stable at this time. Venous stasis ulceration measuring roughly 1 cm x 1 cm x 0.1 cm noted to medial aspect of left leg. No malodor, no drainage, no erythema, no other clinical signs of infection noted. No probe to bone, undermining, tracking or tunneling appreciated. MSK: POP to ulceration of left leg. Cicatrix noted to right leg secondary to traumatic reconstruction of leg. Otherwise ROM WNL for age at all major joints without pain - Neurological Exam Neurological Exam: Alert, Awake, Oriented x3 - Psychiatric Exam Psychiatric exam: Normal Affect, Normal Mood Assessment and Plan - Assessment and Plan (Free Text) Assessment: 72 year old male with PMHx asthma, HTN, multiple DVTs seen at bedside for clinically non-infected venous stasis ulceration of left leg and open wound of right leg, both stable and clinically uninfected Plan: Patient seen and evaluated at bedside Charts, labs and vitals reviewed Plan discussed with attending Dr. Raymond Afebrile, absent leukocytosis D-dimer elevated 1148 on admission Multiple DVTs of LLE seen on venous duplex Continue treatment per Medicine team It is thought that venous stasis ulceration of left leg is secondary to edematous changes. No compressive wound care therapy will be applied at this time given the fact that patient has DVTs Continue with diuresis per medicine for decrease in b/l LE edema Xrays reviewed and found to be unremarkable Arterial duplex findings appreciated No plans for surgical intervention at this time Wound sites stable per podiatry and patient can follow up with Dr. Raymond upon discharge Podiatry will continue with local wound care to ulceration site while patient remains in house, Mupirocin, xeroform, DSD b/l
[2018-01-02 08:10] LABS: BASO # 0.2 K/uL (0.0-0.2); BASO % 2.4 % (0.0-2.0); EOS # 0.3 K/uL (0.0-0.7); HEMOGLOBIN 10.7 g/dL (12.0-18.0); LYMPH # 2.8 K/uL (1.0-4.3); LYMPH % 32.6 % (20.0-40.0); MEAN CELL VOLUME 82.3 fL (80.0-94.0); MEAN CORPUSCULAR HGB CONC 33.9 g/dL (33.0-37.0); MEAN PLATELET VOLUME 9.1 fL (7.2-11.7); MONO # 3.2 K/uL (0.0-0.8); MONO % 37.4 % (0.0-10.0); NEUT # 2.1 K/uL (1.8-7.0); NEUT % 24.6 % (50.0-75.0); NRBC % 0.1 % (0.0-2.0); PLATELET COUNT 285 K/uL (130-400); RBC 3.83 Mil/uL (4.40-5.90); RED CELL DISTRIBUTION WIDTH 32.1 % (11.5-14.5); WHITE BLOOD COUNT 8.6 K/uL (4.8-10.8)
[2018-01-02 08:51] LABS: ALB/GLOB RATIO 0.7 (1.0-2.1); ALBUMIN 3.5 g/dL (3.5-5.0); ALT/SGPT 16 U/L (21-72); AST/SGOT 27 U/L (17-59); BLOOD UREA NITROGEN 20 mg/dL (9-20); CALCIUM 8.1 mg/dl (8.6-10.4); GFR AFRICAN-AMERICAN > 60; GFR NON-AFRICAN AMERICAN 60
[2018-01-02] MEDS: Enoxaparin 100 mg Syringe SC SCH ×2 (09:25→21:12)
[2018-01-02] MEDS: Saccharomyces Boulardi 250 mg Cap PO SCH ×2 (09:25→18:30)
[2018-01-02] MEDS: Pantoprazole 40 mg EC Tab PO SCH (09:25)
[2018-01-02 09:40] LABS: BANDS 1 % (0-2); LYMPHOCYTE 32 % (20-40); METAMYELOCYTE 1 % (0-0); MONOCYTE 40 % (0-10); NEUTROPHIL 26 % (50-75); PLATELET ESTIMATE NORMAL (NORMAL); TOTAL CELLS COUNTED 100
[2018-01-02 09:42] LABS: ANISOCYTOSIS MODERATE; POIKILOCYTOSIS SLIGHT
[2018-01-02 09:43] LABS: GIANT PLATELETS PRESENT; HYPOCHROMIC SLIGHT; LARGE PLATELETS PRESENT; OVALOCYTES SLIGHT; POLYCHROMIC SLIGHT; TEARDROP CELLS SLIGHT
[2018-01-02 09:44] LABS: SCHISTOCYTES SLIGHT
[2018-01-02] MEDS ORDERED: Pneumococcal 23-Valent Vaccine IM ONE (10:00)
--- NOTE | 2018-01-02 10:21 | CP.PCM.PN ---
<Theresa Guerrahanklars - Last Filed: 01/02/18 19:46> Subjective - Date & Time of Evaluation Date of Evaluation: 01/02/18 Time of Evaluation: 09:12 - Subjective Subjective: PGY 2 Medicine Note- Dr. Gloria's service Patient seen and examined in no apparent acute distress. Patient has some occasional lower extremity discomfort. He denies chest pain, palpitations, nausea, vomiting, bowel changes, headaches or dyspnea at this time. He anticipates returning to work. Objective - Vital Signs/Intake and Output Vital Signs (last 24 hours): Temp Pulse Resp BP Pulse Ox 97.7 F 80 20 159/75 H 100 01/02/18 08:09 01/02/18 08:09 01/02/18 08:09 01/02/18 09:25 01/02/18 08:09 - Medications Medications: Current Medications Enoxaparin Sodium (Lovenox) 90 mg SC Q12 [facility] Last Admin: 01/02/18 09:25 Dose: 90 mg Furosemide (Lasix) 40 mg IVP DAILY [facility] Last Admin: 01/02/18 09:25 Dose: 40 mg Piperacillin Sod/Tazobactam Sod (Zosyn 3.375 Gm Iv Premix) 3.375 gm in 50 mls @ 100 mls/hr IVPB Q6H [facility] Last Admin: 01/02/18 06:05 Dose: 100 mls/hr Ketorolac Tromethamine (Toradol) 30 mg IV Q6 PRN PRN Reason: Pain, severe (8-10) Last Admin: 01/02/18 05:19 Dose: 30 mg Ketorolac Tromethamine (Toradol) 15 mg IVP Q6 PRN PRN Reason: Pain, moderate (4-7) Last Admin: 01/01/18 21:23 Dose: 15 mg Pantoprazole Sodium (Protonix Ec Tab) 40 mg PO DAILY [facility] Last Admin: 01/02/18 09:25 Dose: 40 mg Saccharomyces Boulardii (Florastor) 250 mg PO BID [facility] Last Admin: 01/02/18 09:25 Dose: 250 mg - Labs Labs: 01/02/18 07:59 01/02/18 07:59 PT 13.1 SECONDS (9.7-12.2) H 12/31/17 18:18 INR 1.1 12/31/17 18:18 APTT 30 SECONDS (21-34) 12/31/17 18:18 - Constitutional Appears: Non-toxic, No Acute Distress - Head Exam Head Exam: ATRAUMATIC - Eye Exam Eye Exam: EOMI, Normal appearance - ENT Exam ENT Exam: Mucous Membranes Moist - Neck Exam Neck Exam: Full ROM - Respiratory Exam Respiratory Exam: NORMAL BREATHING PATTERN. absent: Wheezes - Cardiovascular Exam Cardiovascular Exam: +S1, +S2 Additional comments: occasional premature beats noted; no apparent audible murmur - GI/Abdominal Exam GI & Abdominal Exam: Soft, Normal Bowel Sounds - Extremities Exam Extremities Exam: Full ROM, Tenderness. absent: Pedal Edema Additional comments: Full ROM, wrapped bilaterally c/d/i; Pedal Edema (2+ pitting edema noted extending from feet to approx 4-5 inches below the knee), Tenderness (with superficial palpation). absent: Normal Inspection - Back Exam Back Exam: Full ROM - Neurological Exam Neurological Exam: Awake, Oriented x3 - Psychiatric Exam Psychiatric exam: Normal Affect, Normal Mood - Skin Skin Exam: Dry, Warm. absent: Normal Color Additional comments: hyperkeratosis and hyperpigmentation of bilateral shins, dry; dressing noted, c/ d/i Assessment and Plan - Assessment and Plan (Free Text) Assessment: Chronic wound of extremity Assessment and Plan: Hx of DVT in lower extremity Afebrile, No-acute distress Rule out Osteomyelitis- No evidence of subcutaneous emphysema. Recommendations for further imaging suggested. ESR elevated. Will perform Bone Scan due to contraindications for MRI. (Patient has metal rods in his leg) Podiatry consult, Dr Raymond. Wound sites deemed stable. No current surgical indication. Will monitor in house. Nursing referral for wound care F/U Blood cultures Wound cultures- Staph aureus. On: Zosyn 3.375g IVPB Q6H (Started 01/02/18) On Florastor as well. Lasix 40mg IVP increased to BID Ketorolac 15mg IVP Q6 PRN moderate pain Ketorolac 30mg IVP Q6H PRN severe pain PT Eval and Treat Status: Acute Priority: High Chronic DVT Assessment and Plan: Venous Dopplers- left partial chronic , non- occlusive DVT of the left common femoral, femoral and popliteal veins. Mild valvular incompetence noted. Part of the study was limited due to swelling. No evidence of DVT in right lower extremity. Refer to complete report. Arterial dopplers- Normal Study Elevated D-Dimer 1148. Imaging: CTA PE Protocol- No apparent signs of PE. Per report, many of the distal pulmonary arteries are poorly visualized. Calcified tortuous aorta noted. Refer to complete report. Meds: Lovenox 90mg SC Q12H Status: Acute Priority: High Suspected Premature atrial beats Assessment and Plan: On Telemetry- Continue to monitor EKG: Sinus rhythm at approx 77 bpm, early signs of repolarization noted. No signs of atrial fibrillation or flutter noted. No ST segment changes noted. Refer to imaging. Labs/Diagnostics: Trop x1 NORMAL ProBNP NORMAL CXR: No active disease F/U ECHO Status: Acute Priority: High (4) Prophylactic measure Assessment and Plan: Contraindication to SCDs Lovenox 90mg SC Q12H Heart healthy diet PT Eval and Treat Status: Acute Priority: Low Mari, PGY 2 <Surinder Gloria H - Last Filed: 01/03/18 07:56> Objective - Vital Signs/Intake and Output Vital Signs (last 24 hours): Temp Pulse Resp BP Pulse Ox 98.2 F 70 20 124/71 98 01/02/18 23:20 01/03/18 04:01 01/02/18 23:20 01/02/18 23:20 01/02/18 23:20 - Medications Medications: Current Medications Enoxaparin Sodium (Lovenox) 90 mg SC Q12 [facility] Last Admin: 01/02/18 21:12 Dose: 90 mg Furosemide (Lasix) 40 mg IVP Q12 [facility] Last Admin: 01/02/18 21:13 Dose: 40 mg Piperacillin Sod/Tazobactam Sod (Zosyn 3.375 Gm Iv Premix) 3.375 gm in 50 mls @ 100 mls/hr IVPB Q6H [facility] Last Admin: 01/03/18 06:06 Dose: 100 mls/hr Ketorolac Tromethamine (Toradol) 30 mg IV Q6 PRN PRN Reason: Pain, severe (8-10) Last Admin: 01/02/18 13:25 Dose: 30 mg Ketorolac Tromethamine (Toradol) 15 mg IVP Q6 PRN PRN Reason: Pain, moderate (4-7) Last Admin: 01/01/18 21:23 Dose: 15 mg Pantoprazole Sodium (Protonix Ec Tab) 40 mg PO DAILY [facility] Last Admin: 01/02/18 09:25 Dose: 40 mg Saccharomyces Boulardii (Florastor) 250 mg PO BID [facility] Last Admin: 01/02/18 18:30 Dose: 250 mg - Labs Labs: 01/02/18 07:59 01/02/18 07:59 PT 13.1 SECONDS (9.7-12.2) H 12/31/17 18:18 INR 1.1 12/31/17 18:18 APTT 30 SECONDS (21-34) 12/31/17 18:18 Attending/Attestation - Attestation I have personally seen and examined this patient.: Yes I have fully participated in the care of the patient.: Yes I have reviewed all pertinent clinical information, including history, physical exam and plan: Yes Notes (Text): 01/03/18 07:46 Medical attending: Patient was seen and examined by me. Agree with the above note by the resident. This is a very nice man who many years ago had a work related injury. Since then he has had chronic DVTs and has been on anticogulation for sometime until one year ago after it was stopped. When I saw him he had already been seen by podiatry and his bilateral feet had been carefully wrapped. His XRAYs of the feet were negative for osteomylitis, however given what the patient tells us - it has been a long time of pain, we will check an bone scan this comming Wednesday. We would like to check an MRI, however he has old metal in his lower extremity ever since he had that fall realted injury. thank you Surinder Gloria
--- NOTE | 2018-01-02 13:17 | CARD ---
APPROVED REPORT EXAM: Two-dimensional and M-mode echocardiogram with Doppler and color Doppler. Other Information Quality : GoodRhythm : INDICATION Abnormal EKG/Arrhythmia 2D DIMENSIONS IVSd1.2 (0.7-1.1cm)Aortic Root (2D)3.2 (2.0-3.7cm) LVDd4.9 (3.9-5.9cm)PWd1.2 (0.7-1.1cm) LVDs3.0 (2.5-4.0cm)FS (%) 37.4 % LVEF (%)67.3 (>50%) M-Mode DIMENSIONS Left Atrium (MM)4.65 (2.5-4.0cm)Aortic Root3.20 (2.2-3.7cm) Aortic Cusp Exc.1.29 (1.5-2.0cm) Mitral Valve MV E Krztkbro16.6cm/sMV A Fmyjctrz03.3cm/sE/A ratio0.8 TDI E/Lateral E'0.0E/Medial E'0.0 Tricuspid Valve TR Peak Zsoyjbjz005cf/sTR Peak Gr.[id number] LEFT VENTRICLE The left ventricle is normal size. There is normal left ventricular wall thickness. The left ventricular function is normal. The left ventricular ejection fraction is within the normal range. No regional wall motion abnormalities noted. Transmitral Doppler flow pattern is Grade I-abnormal relaxation pattern. LA PRESSURE NORMAL No left ventricle thrombus noted on this study. There is no ventricular septal defect visualized. There is no left ventricular aneurysm. There is no mass noted in the left ventricle. RIGHT VENTRICLE The right ventricle is normal size. There is normal right ventricular wall thickness. The right ventricular systolic function is normal. ATRIA The left atrium size is normal. The right atrium size is normal. The interatrial septum is intact with no evidence for an atrial septal defect. AORTIC VALVE The aortic valve is normal in structure and function. No aortic regurgitation is present. There is no aortic valvular stenosis. There is no aortic valvular vegetation. MITRAL VALVE The mitral valve is normal in structure and function. There is no evidence of mitral valve prolapse. There is no mitral valve stenosis. There is no mitral valve regurgitation noted. TRICUSPID VALVE The tricuspid valve is normal in structure and function. There is mild tricuspid regurgitation. Right ventricular systolic pressure is estimated at 30-40 mmHg. There is no tricuspid valve prolapse or vegetation. There is no tricuspid valve stenosis. PULMONIC VALVE The pulmonary valve is normal in structure and function. There is no pulmonic valvular regurgitation. There is no pulmonic valvular stenosis. GREAT VESSELS The aortic root is normal in size. The ascending aorta is normal in size. The pulmonary artery is normal. The IVC is normal in size and collapses >50% with inspiration. PERICARDIAL EFFUSION The pericardium appears normal. There is no pleural effusion. <Conclusion> The left ventricular function is normal. The left ventricular ejection fraction is within the normal range. No regional wall motion abnormalities noted.
[2018-01-03] MEDS: Piperacill/Tazo 3.375gm in Dex 3.375 GM/50 ML BAG IVPB SCH ×3 (01:11→12:50)
[2018-01-03 08:09] LABS: BASO # 0.1 K/uL (0.0-0.2); BASO % 1.9 % (0.0-2.0); EOS # 0.3 K/uL (0.0-0.7); EOS % 3.5 % (0.0-4.0); HEMOGLOBIN 11.4 g/dL (12.0-18.0); LYMPH # 2.9 K/uL (1.0-4.3); LYMPH % 39.5 % (20.0-40.0); MEAN CELL VOLUME 81.7 fL (80.0-94.0); MEAN CORPUSCULAR HEMOGLOBIN 28.6 pg (27.0-31.0); MONO # 2.8 K/uL (0.0-0.8); MONO % 38.4 % (0.0-10.0); NEUT # 1.2 K/uL (1.8-7.0); NEUT % 16.7 % (50.0-75.0); NRBC % 0.2 % (0.0-2.0); PLATELET COUNT 330 K/uL (130-400); RBC 3.99 Mil/uL (4.40-5.90); RED CELL DISTRIBUTION WIDTH 31.6 % (11.5-14.5); WHITE BLOOD COUNT 7.2 K/uL (4.8-10.8)
[2018-01-03 08:25] LABS: ALB/GLOB RATIO 0.7 (1.0-2.1); ALBUMIN 3.8 g/dL (3.5-5.0); ALT/SGPT 9 U/L (21-72); AST/SGOT 28 U/L (17-59); BLOOD UREA NITROGEN 18 mg/dL (9-20); CALCIUM 8.2 mg/dl (8.6-10.4); GFR AFRICAN-AMERICAN > 60; GFR NON-AFRICAN AMERICAN > 60
--- NOTE | 2018-01-03 08:45 | CP.PCM.PN ---
<Kimo Donnelly - Last Filed: 01/03/18 14:25> Subjective - Date & Time of Evaluation Date of Evaluation: 01/03/18 Time of Evaluation: 08:42 - Subjective Subjective: PGY-[address] Gloria. No acute events overnight. Patient was about to go for Bone Scan (MRI contraindicated 11/05 to metal in right leg). Patient stated he still has pain in his leg b/l He stated his swelling has decreased slightly since admission. He denied chest pain, shortness of breath, bleeding, nausea, vomiting. Objective - Vital Signs/Intake and Output Vital Signs (last 24 hours): Temp Pulse Resp BP Pulse Ox 98 F 83 20 151/90 H 99 01/03/18 08:18 01/03/18 08:18 01/03/18 08:18 01/03/18 08:18 01/03/18 08:18 - Medications Medications: Current Medications Enoxaparin Sodium (Lovenox) 90 mg SC Q12 [facility] Last Admin: 01/02/18 21:12 Dose: 90 mg Furosemide (Lasix) 40 mg IVP Q12 [facility] Last Admin: 01/02/18 21:13 Dose: 40 mg Piperacillin Sod/Tazobactam Sod (Zosyn 3.375 Gm Iv Premix) 3.375 gm in 50 mls @ 100 mls/hr IVPB Q6H [facility] Last Admin: 01/03/18 06:06 Dose: 100 mls/hr Ketorolac Tromethamine (Toradol) 30 mg IV Q6 PRN PRN Reason: Pain, severe (8-10) Last Admin: 01/02/18 13:25 Dose: 30 mg Ketorolac Tromethamine (Toradol) 15 mg IVP Q6 PRN PRN Reason: Pain, moderate (4-7) Last Admin: 01/01/18 21:23 Dose: 15 mg Pantoprazole Sodium (Protonix Ec Tab) 40 mg PO DAILY [facility] Last Admin: 01/02/18 09:25 Dose: 40 mg Saccharomyces Boulardii (Florastor) 250 mg PO BID [facility] Last Admin: 01/02/18 18:30 Dose: 250 mg - Labs Labs: 01/03/18 07:47 01/03/18 07:47 PT 13.1 SECONDS (9.7-12.2) H 12/31/17 18:18 INR 1.1 12/31/17 18:18 APTT 30 SECONDS (21-34) 12/31/17 18:18 - Additional Findings Additional findings: - Constitutional Appears: Non-toxic, No Acute Distress - Head Exam Head Exam: ATRAUMATIC - Eye Exam Eye Exam: EOMI, Normal appearance - ENT Exam ENT Exam: Mucous Membranes Moist - Neck Exam Neck Exam: Full ROM - Respiratory Exam Respiratory Exam: NORMAL BREATHING PATTERN. absent: Wheezes - Cardiovascular Exam Cardiovascular Exam: +S1, +S2 Additional comments: occasional premature beats noted; no apparent audible murmur - GI/Abdominal Exam GI & Abdominal Exam: Soft, Normal Bowel Sounds - Extremities Exam Extremities Exam: Full ROM, Tenderness. absent: Pedal Edema Additional comments: Full ROM, wrapped bilaterally c/d/i; Pedal Edema (2+ pitting edema noted extending from feet to approx 4-5 inches below the knee), Tenderness (with superficial palpation). absent: Normal Inspection - Back Exam Back Exam: Full ROM - Neurological Exam Neurological Exam: Awake, Oriented x3 - Psychiatric Exam Psychiatric exam: Normal Affect, Normal Mood - Skin Skin Exam: Dry, Warm. 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 Afebrile, No-acute distress Rule out Osteomyelitis- No evidence of subcutaneous emphysema. Recommendations for further imaging suggested. ESR elevated. Will perform Bone Scan due to contraindications for MRI. (Patient has metal rods in his leg) Podiatry consult, Dr Raymond. * venous stasis ulceration of left leg is secondary to edematous changes * No compressive wound care therapy will be applied at this time given the fact that patient has DVTs * No plans for surgical intervention at this time * Podiatry will continue with local wound care to ulceration site while patient remains in house, Mupirocin, xeroform, DSD b/l * Wound sites stable per podiatry and patient can follow up with Dr. Raymond upon discharge Nursing referral for wound care Blood cultures NEGATIVE up to date Wound cultures POSITIVE for MRSA Imaging: Tibia/Fibula XRAY: No evidence of acute displaced fracture nor dislocation. No obvious cortical destructive changes. Nonspecific soft tissue calcifications. Foot b/l XRAY: Chronic posttraumatic and/or post infectious changes involving the distal right tibia and fibula. Soft tissue calcifications are within distal medical soft tissues of left tibia fibula with no definitive cortical destructive changes. Venous Dopplers - Left partial chronic , non- occlusive DVT of the left common femoral, femoral and popliteal veins. Mild valvular incompetence noted. Part of the study was limited due to swelling. No evidence of DVT in right lower extremity. Refer to complete report. F/U Bone Scan: Meds: Zosyn 3.375g IVPB Q6H (Started 01/02/18 - Stopped 01/03/18 due to poor sensitivity) Vancomycin 500mg IVP Q12H (started 01/03/18) On Florastor as well. Lasix 40mg IVP increased to BID Ketorolac 15mg IVP Q6 PRN moderate pain Ketorolac 30mg IVP Q6H PRN severe pain PT Eval and Treat Status: Acute Priority: High Chronic DVT Assessment and Plan: Venous Dopplers- left partial chronic , non- occlusive DVT of the left common femoral, femoral and popliteal veins. Mild valvular incompetence noted. Part of the study was limited due to swelling. No evidence of DVT in right lower extremity. Refer to complete report. Arterial dopplers- Normal Study Elevated D-Dimer 1148. Consult Vascular Surgery, Dr Castillo for possible surgical intervention. Will follow recs. Imaging: CTA PE Protocol- No apparent signs of PE. Per report, many of the distal pulmonary arteries are poorly visualized. Calcified tortuous aorta noted. Refer to complete report. Meds: Lovenox 90mg SC Q12H Status: Acute Priority: High Suspected Premature atrial beats Assessment and Plan: On Telemetry- Continue to monitor EKG: Sinus rhythm at approx 77 bpm, early signs of repolarization noted. No signs of atrial fibrillation or flutter noted. No ST segment changes noted. Refer to imaging. Labs/Diagnostics: Trop x1 NORMAL ProBNP NORMAL CXR: No active disease ECHO: Left ventricular function is normal. Left Ventricular EF is normal. No regional wall motion abnormalities noted. Status: Acute Priority: High (4) Prophylactic measure Assessment and Plan: Contraindication to SCDs Lovenox 90mg SC Q12H Heart healthy diet PT Eval and Treat Status: Acute Priority: Low <Surinder Gloria H - Last Filed: 01/03/18 15:37> Objective - Vital Signs/Intake and Output Vital Signs (last 24 hours): Temp Pulse Resp BP Pulse Ox 98 F 70 20 157/72 H 99 01/03/18 08:18 01/03/18 13:26 01/03/18 08:18 01/03/18 10:55 01/03/18 08:18 Intake and Output: 01/03/18 01/03/18 06:59 18:59 Intake Total 450 Balance 450 - Medications Medications: Current Medications Enoxaparin Sodium (Lovenox) 90 mg SC Q12 [facility] Last Admin: 01/03/18 10:56 Dose: 90 mg Furosemide (Lasix) 40 mg IVP Q12 [facility] Last Admin: 01/03/18 10:55 Dose: 40 mg Vancomycin HCl 500 mg/ Sodium (Chloride) 100 mls @ 67 mls/hr IVPB Q12H ERMA PRN Reason: Protocol Stop: 01/08/18 16:01 Ketorolac Tromethamine (Toradol) 30 mg IV Q6 PRN PRN Reason: Pain, severe (8-10) Last Admin: 01/03/18 10:55 Dose: 30 mg Ketorolac Tromethamine (Toradol) 15 mg IVP Q6 PRN PRN Reason: Pain, moderate (4-7) Last Admin: 01/01/18 21:23 Dose: 15 mg Pantoprazole Sodium (Protonix Ec Tab) 40 mg PO DAILY [facility] Last Admin: 01/03/18 10:56 Dose: 40 mg Saccharomyces Boulardii (Florastor) 250 mg PO BID [facility] Last Admin: 01/03/18 10:56 Dose: 250 mg - Labs Labs: 01/03/18 07:47 01/03/18 07:47 PT 13.1 SECONDS (9.7-12.2) H 12/31/17 18:18 INR 1.1 12/31/17 18:18 APTT 30 SECONDS (21-34) 12/31/17 18:18 Attending/Attestation - Attestation I have personally seen and examined this patient.: Yes I have fully participated in the care of the patient.: Yes I have reviewed all pertinent clinical information, including history, physical exam and plan: Yes Notes (Text): Medical attending: Patient was seen and examined by me. Agree with the above note by the resident. When we saw the patient he had done the first part of the bone scan and pending second part. The patient did not report acute changes. Still has ongoing pain in lower extremity. He reports to us that the diureses does help - he has noted improvment in the left foot's edema as well as right raymundo edema. However he also said the edema in the right foot and left raymundo was unchanged from before. thank you Surinder Gloria
[2018-01-03 09:44] LABS: ANISOCYTOSIS MARKED; EOSINOPHIL 4 % (0-4); LYMPHOCYTE 39 % (20-40); MONOCYTE 35 % (0-10); NEUTROPHIL 21 % (50-75); PLATELET ESTIMATE NORMAL (NORMAL); POIKILOCYTOSIS SLIGHT; REACTIVE LYMPHOCYTES 1 % (0-0); TOTAL CELLS COUNTED 100
[2018-01-03 09:45] LABS: OVALOCYTES SLIGHT; TARGET CELLS SLIGHT
[2018-01-03] MEDS: Saccharomyces Boulardi 250 mg Cap PO SCH ×2 (10:56→17:31)
[2018-01-03] MEDS: Pantoprazole 40 mg EC Tab PO SCH (10:56)
[2018-01-03] MEDS: Enoxaparin 100 mg Syringe SC SCH ×2 (10:56→21:16)
--- NOTE | 2018-01-03 15:00 | CP.PCM.PN ---
Subjective - Date & Time of Evaluation Date of Evaluation: 01/03/18 Time of Evaluation: 11:30 - Subjective Subjective: Podiatry Progress Note- Dr. Raymond 72 year old male with PMHx asthma, HTN, multiple DVTs seen bedside this AM for f /u of b/l venous stasis ulcerations. Pt is seen resting comfortably in bed at time of visit. Does report some occasional pain to the ulcerations of both legs but well-controlled with medication. Denies f/n/v/c/sob/cp/weakness or dizziness at this time. Objective - Vital Signs/Intake and Output Vital Signs (last 24 hours): Temp Pulse Resp BP Pulse Ox 98 F 70 20 157/72 H 99 01/03/18 08:18 01/03/18 13:26 01/03/18 08:18 01/03/18 10:55 01/03/18 08:18 Intake and Output: 01/03/18 01/03/18 06:59 18:59 Intake Total 450 Balance 450 - Medications Medications: Current Medications Enoxaparin Sodium (Lovenox) 90 mg SC Q12 [facility] Last Admin: 01/03/18 10:56 Dose: 90 mg Furosemide (Lasix) 40 mg IVP Q12 [facility] Last Admin: 01/03/18 10:55 Dose: 40 mg Vancomycin HCl 500 mg/ Sodium (Chloride) 100 mls @ 67 mls/hr IVPB Q12H ERMA PRN Reason: Protocol Stop: 01/08/18 16:01 Ketorolac Tromethamine (Toradol) 30 mg IV Q6 PRN PRN Reason: Pain, severe (8-10) Last Admin: 01/03/18 10:55 Dose: 30 mg Ketorolac Tromethamine (Toradol) 15 mg IVP Q6 PRN PRN Reason: Pain, moderate (4-7) Last Admin: 01/01/18 21:23 Dose: 15 mg Pantoprazole Sodium (Protonix Ec Tab) 40 mg PO DAILY [facility] Last Admin: 01/03/18 10:56 Dose: 40 mg Saccharomyces Boulardii (Florastor) 250 mg PO BID [facility] Last Admin: 01/03/18 10:56 Dose: 250 mg - Labs Labs: 01/03/18 07:47 01/03/18 07:47 PT 13.1 SECONDS (9.7-12.2) H 12/31/17 18:18 INR 1.1 12/31/17 18:18 APTT 30 SECONDS (21-34) 12/31/17 18:18 - Constitutional Appears: Non-toxic, No Acute Distress - Extremities Exam Extremities Exam: absent: Calf Tenderness Additional comments: LE focused exam: Vasc: DP/PT pulses weakly palpable secondary to b/l edema. Edema noted to be improved today b/l. CFT < 3 seconds to all digits. Skin temperature warm to warm from proximal to distal. Neuro: Epicritic and protective sensation grossly intact b/l Derm: Cicatrix noted to anterior right leg secondary to previous traumatic event with reconstruction. Healing wound that wasn noted to anterior portion of right leg yesterday is now open with minimal bleeding. No erythema, purulence, drainage, malodor or other clinical signs of infection appreciated. No clinical signs of infection noted to wound Wound appears stable at this time. Venous stasis ulceration measuring roughly 1 cm x 1 cm x 0.1 cm noted to medial aspect of left leg. No malodor, no drainage, no erythema, no other clinical signs of infection noted. No probe to bone, undermining, tracking or tunneling appreciated. MSK: POP to ulceration of left leg. Cicatrix noted to right leg secondary to traumatic reconstruction of leg. Otherwise ROM WNL for age at all major joints without pain - Neurological Exam Neurological Exam: Alert, Awake, Oriented x3 - Psychiatric Exam Psychiatric exam: Normal Affect, Normal Mood Assessment and Plan - Assessment and Plan (Free Text) Assessment: 72 year old male with PMHx asthma, HTN, multiple DVTs seen at bedside for clinically non-infected venous stasis ulceration of left leg and open wound of right leg, both stable and clinically uninfected Plan: Pt s/e at the bedside Plan discussed with attending Dr. Raymnod Chart labs and vitals reviewed: afebrile, no leukocytosis D-dimer elevated 1148 on admission Multiple DVTs of LLE seen on venous duplex Continue treatment per Medicine team It is thought that venous stasis ulceration of left leg is secondary to edematous changes. No compressive wound care therapy will be applied at this time given the fact that patient has DVTs Continue with diuresis per medicine for decrease in b/l LE edema LE Xrays reviewed and found to be unremarkable Arterial duplex findings appreciated No plans for surgical intervention at this time Wound sites stable per podiatry and patient can follow up with Dr. Raymond upon discharge f/u LE bone scan as ordered by primary team Podiatry will continue with local wound care to ulceration site while patient remains in house, Mupirocin, xeroform, DSD b/l
--- NOTE | 2018-01-03 16:12 | NM ---
PROCEDURE: Three-phase bone scan HISTORY: Leg edema, chronic Elias the wounds. COMPARISON: 01/01/2018 left tibia and fibula. 01/01/2018 bilateral ankles and feet. 04/23/2015 bilateral tibia and fibula. TECHNIQUE: Following administration of 23.6 miCu of Tc MDP multiplanar whole body images were obtained. FINDINGS: Flow component: Increased flow to the visualize left lower extremity including calf, ankle and foot Blood pool component: Increased accumulation of radionuclide within the soft tissues of the left lower extremity and focal increased uptake in the right tibia Delayed images at 3:00: Retention of radionuclide right distal tibia Other findings: None. IMPRESSION: Findings consistent with cellulitis. No evidence of acute osteomyelitis. Increased uptake distal right tibia abort on immediate blood pool study and delayed images. The absence of increased flow to the right tibia makes the diagnosis of acute osteomyelitis substantially less likely. There are plain film radiographic findings distal right tibia and fibula consistent with prior trauma, the findings are consistent with a chronic, indolent osseous process.
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
--- NOTE | 2018-01-04 07:05 | CP.PCM.PN ---
Subjective - Date & Time of Evaluation Date of Evaluation: 01/04/18 Time of Evaluation: 10:58 - Subjective Subjective: Progress Note for Dr. Gloria Patient seen and examined at bedside in cheerful disposition. Patient states he is doing well and is tolerating pain well. Patient denies fever, chills, nausea , vomiting. Patient states he did the CT scan today. awaiting results. Objective - Vital Signs/Intake and Output Vital Signs (last 24 hours): Temp Pulse Resp BP Pulse Ox 97.7 F 96 H 20 142/70 96 01/03/18 23:05 01/03/18 23:05 01/03/18 23:05 01/03/18 23:05 01/03/18 23:05 Intake and Output: 01/04/18 01/04/18 06:59 18:59 Intake Total 500 Output Total 600 Balance -100 - Medications Medications: Current Medications Enoxaparin Sodium (Lovenox) 90 mg SC Q12 [facility] Last Admin: 01/03/18 21:16 Dose: 90 mg Furosemide (Lasix) 40 mg IVP Q12 [facility] Last Admin: 01/03/18 21:16 Dose: 40 mg Vancomycin HCl 500 mg/ Sodium (Chloride) 100 mls @ 67 mls/hr IVPB Q12H [facility] PRN Reason: Protocol Stop: 01/08/18 16:01 Last Admin: 01/04/18 04:23 Dose: 67 mls/hr Ketorolac Tromethamine (Toradol) 30 mg IV Q6 PRN PRN Reason: Pain, severe (8-10) Last Admin: 01/04/18 00:44 Dose: 30 mg Ketorolac Tromethamine (Toradol) 15 mg IVP Q6 PRN PRN Reason: Pain, moderate (4-7) Last Admin: 01/01/18 21:23 Dose: 15 mg Mupirocin (Bactroban Ointment) 0 gm TOP BID [facility] Pantoprazole Sodium (Protonix Ec Tab) 40 mg PO DAILY [facility] Last Admin: 01/03/18 10:56 Dose: 40 mg Saccharomyces Boulardii (Florastor) 250 mg PO BID [facility] Last Admin: 01/03/18 17:31 Dose: 250 mg - Labs Labs: 01/03/18 07:47 01/03/18 07:47 PT 13.1 SECONDS (9.7-12.2) H 12/31/17 18:18 INR 1.1 12/31/17 18:18 APTT 30 SECONDS (21-34) 12/31/17 18:18 - Constitutional Appears: Non-toxic, No Acute Distress - Head Exam Head Exam: ATRAUMATIC, NORMAL INSPECTION, NORMOCEPHALIC - Eye Exam Eye Exam: EOMI, Normal appearance - ENT Exam ENT Exam: Mucous Membranes Moist, Normal Exam - Neck Exam Neck Exam: Full ROM, Normal Inspection - Respiratory Exam Respiratory Exam: Clear to Ausculation Bilateral, NORMAL BREATHING PATTERN - Cardiovascular Exam Cardiovascular Exam: REGULAR RHYTHM, +S1, +S2 - GI/Abdominal Exam GI & Abdominal Exam: Soft. absent: Tenderness - Rectal Exam Rectal Exam: NORMAL INSPECTION - Extremities Exam Extremities Exam: Full ROM Additional comments: 1+ pitting edema mottled and hyperkeratosis of lower extremities. left and right anterior leg covered in dressings. Wounds are pink and clean. PT pulses palpable in right lower extremity. Left lower extremity PT and DP pulses were difficult to palpate - Neurological Exam Neurological Exam: Alert, Awake, CN II-XII Intact - Psychiatric Exam Psychiatric exam: Normal Affect, Normal Mood - Skin Skin Exam: Dry, Intact, Normal Color, Warm - Additional Findings Additional findings: - Head Exam Head Exam: ATRAUMATIC - Eye Exam Eye Exam: EOMI, Normal appearance - ENT Exam ENT Exam: Mucous Membranes Moist - Neck Exam Neck Exam: Full ROM - Respiratory Exam Respiratory Exam: NORMAL BREATHING PATTERN. absent: Wheezes - Cardiovascular Exam Cardiovascular Exam: +S1, +S2 Additional comments: occasional premature beats noted; no apparent audible murmur - GI/Abdominal Exam GI & Abdominal Exam: Soft, Normal Bowel Sounds - Extremities Exam Extremities Exam: Full ROM, Tenderness. absent: Pedal Edema Additional comments: Full ROM, wrapped bilaterally c/d/i; Pedal Edema (2+ pitting edema noted extending from feet to approx 4-5 inches below the knee), Tenderness (with superficial palpation). absent: Normal Inspection - Back Exam Back Exam: Full ROM - Neurological Exam Neurological Exam: Awake, Oriented x3 - Psychiatric Exam Psychiatric exam: Normal Affect, Normal Mood - Skin Skin Exam: Dry, Warm. 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 Afebrile, No-acute distress Rule out Osteomyelitis- No evidence of subcutaneous emphysema. Recommendations for further imaging suggested. ESR elevated. Will perform Bone Scan due to contraindications for MRI. (Patient has metal rods in his leg) Podiatry consult, Dr Raymond. * venous stasis ulceration of left leg is secondary to edematous changes * No compressive wound care therapy will be applied at this time given the fact that patient has DVTs * No plans for surgical intervention at this time * Podiatry will continue with local wound care to ulceration site while patient remains in house, Mupirocin, xeroform, DSD b/l * Wound sites stable per podiatry and patient can follow up with Dr. Raymond upon discharge Nursing referral for wound care Blood cultures NEGATIVE up to date Wound cultures POSITIVE for MRSA Imaging: Tibia/Fibula XRAY: No evidence of acute displaced fracture nor dislocation. No obvious cortical destructive changes. Nonspecific soft tissue calcifications. Foot b/l XRAY: Chronic posttraumatic and/or post infectious changes involving the distal right tibia and fibula. Soft tissue calcifications are within distal medical soft tissues of left tibia fibula with no definitive cortical destructive changes. Venous Dopplers - Left partial chronic , non- occlusive DVT of the left common femoral, femoral and popliteal veins. Mild valvular incompetence noted. Part of the study was limited due to swelling. No evidence of DVT in right lower extremity. Refer to complete report. Bone Scan: negative for osteomyelitis f/u CTA ileofemoral runoff: f/u CLAIR PVR: Meds: Zosyn 3.375g IVPB Q6H (Started 01/02/18 - Stopped 01/03/18 due to poor sensitivity) Vancomycin 500mg IVP Q12H (started 01/03/18) On Florastor as well. Lasix 40mg IVP increased to BID Ketorolac 15mg IVP Q6 PRN moderate pain Ketorolac 30mg IVP Q6H PRN severe pain PT Eval and Treat Status: Acute Priority: High Chronic DVT Assessment and Plan: Venous Dopplers- left partial chronic , non- occlusive DVT of the left common femoral, femoral and popliteal veins. Mild valvular incompetence noted. Part of the study was limited due to swelling. No evidence of DVT in right lower extremity. Refer to complete report. Arterial dopplers- Normal Study Elevated D-Dimer 1148. Consult Vascular Surgery, Dr Castillo: surgical team waiting for CLAIR/PVR and CTA ileofemoral runoff for further evaluation. Imaging: CTA PE Protocol- No apparent signs of PE. Per report, many of the distal pulmonary arteries are poorly visualized. Calcified tortuous aorta noted. Refer to complete report. Meds: Lovenox 90mg SC Q12H Status: Acute Priority: High Suspected Premature atrial beats Assessment and Plan: On Telemetry- Continue to monitor EKG: Sinus rhythm at approx 77 bpm, early signs of repolarization noted. No signs of atrial fibrillation or flutter noted. No ST segment changes noted. Refer to imaging. Labs/Diagnostics: Trop x1 NORMAL ProBNP NORMAL CXR: No active disease ECHO: Left ventricular function is normal. Left Ventricular EF is normal. No regional wall motion abnormalities noted. (4) Prophylactic measure Assessment and Plan: Contraindication to SCDs Lovenox 90mg SC Q12H Heart healthy diet PT Eval and Treat
[2018-01-04 07:35] LABS: BASO # 0.1 K/uL (0.0-0.2); BASO % 1.7 % (0.0-2.0); EOS # 0.3 K/uL (0.0-0.7); EOS % 3.5 % (0.0-4.0); HEMOGLOBIN 11.1 g/dL (12.0-18.0); LYMPH # 2.8 K/uL (1.0-4.3); MEAN CELL VOLUME 81.7 fL (80.0-94.0); MEAN CORPUSCULAR HEMOGLOBIN 28.1 pg (27.0-31.0); MEAN CORPUSCULAR HGB CONC 34.4 g/dL (33.0-37.0); MEAN PLATELET VOLUME 8.7 fL (7.2-11.7); MONO # 2.7 K/uL (0.0-0.8); MONO % 37.6 % (0.0-10.0); NEUT # 1.3 K/uL (1.8-7.0); NEUT % 18.2 % (50.0-75.0); PLATELET COUNT 336 K/uL (130-400); RBC 3.97 Mil/uL (4.40-5.90); RED CELL DISTRIBUTION WIDTH 31.5 % (11.5-14.5); WHITE BLOOD COUNT 7.3 K/uL (4.8-10.8)
[2018-01-04 08:22] LABS: ALB/GLOB RATIO 0.7 (1.0-2.1); ALBUMIN 3.8 g/dL (3.5-5.0); ALT/SGPT 25 U/L (21-72); AST/SGOT 31 U/L (17-59); BLOOD UREA NITROGEN 19 mg/dL (9-20); CALCIUM 7.7 mg/dl (8.6-10.4); GFR AFRICAN-AMERICAN > 60; GFR NON-AFRICAN AMERICAN > 60
[2018-01-04 08:40] LABS: ANISOCYTOSIS MARKED; BANDS 1 % (0-2); EOSINOPHIL 3 % (0-4); LYMPHOCYTE 40 % (20-40); METAMYELOCYTE 1 % (0-0); MONOCYTE 32 % (0-10); NEUTROPHIL 23 % (50-75); OVALOCYTES SLIGHT; PLATELET ESTIMATE NORMAL (NORMAL); POIKILOCYTOSIS SLIGHT; TOTAL CELLS COUNTED 100
[2018-01-04 08:41] LABS: TARGET CELLS SLIGHT
[2018-01-04] MEDS: Enoxaparin 100 mg Syringe SC SCH ×2 (10:25→22:20)
[2018-01-04] MEDS: Saccharomyces Boulardi 250 mg Cap PO SCH ×2 (10:26→17:06)
[2018-01-04] MEDS: Pantoprazole 40 mg EC Tab PO SCH (10:26)
--- NOTE | 2018-01-04 11:10 | CP.PCM.PN ---
Subjective - Date & Time of Evaluation Date of Evaluation: 01/04/18 Time of Evaluation: 06:40 - Subjective Subjective: Patient seen and examined this AM. No adverse events overnight. Patient denies any fevers, chills, pain is well managed. Objective - Vital Signs/Intake and Output Vital Signs (last 24 hours): Temp Pulse Resp BP Pulse Ox 98.0 F 82 18 115/63 96 01/04/18 07:00 01/04/18 07:05 01/04/18 07:00 01/04/18 10:26 01/04/18 07:00 Intake and Output: 01/04/18 01/04/18 06:59 18:59 Intake Total 500 Output Total 600 Balance -100 - Medications Medications: Current Medications Enoxaparin Sodium (Lovenox) 90 mg SC Q12 [facility] Last Admin: 01/04/18 10:25 Dose: 90 mg Furosemide (Lasix) 40 mg IVP Q12 [facility] Last Admin: 01/04/18 10:26 Dose: 40 mg Vancomycin HCl 500 mg/ Sodium (Chloride) 100 mls @ 67 mls/hr IVPB Q12H [facility] PRN Reason: Protocol Stop: 01/08/18 16:01 Last Admin: 01/04/18 04:23 Dose: 67 mls/hr Ketorolac Tromethamine (Toradol) 30 mg IV Q6 PRN PRN Reason: Pain, severe (8-10) Last Admin: 01/04/18 00:44 Dose: 30 mg Ketorolac Tromethamine (Toradol) 15 mg IVP Q6 PRN PRN Reason: Pain, moderate (4-7) Last Admin: 01/01/18 21:23 Dose: 15 mg Mupirocin (Bactroban Ointment) 0 gm TOP BID [facility] Last Admin: 01/04/18 10:26 Dose: 1 applic Pantoprazole Sodium (Protonix Ec Tab) 40 mg PO DAILY [facility] Last Admin: 01/04/18 10:26 Dose: 40 mg Saccharomyces Boulardii (Florastor) 250 mg PO BID [facility] Last Admin: 01/04/18 10:26 Dose: 250 mg Vitamin A (Vitamin A&D) 1 applic TP Q8 PRN PRN Reason: Dry skin - Labs Labs: 01/04/18 07:18 01/04/18 07:18 PT 13.1 SECONDS (9.7-12.2) H 12/31/17 18:18 INR 1.1 12/31/17 18:18 APTT 30 SECONDS (21-34) 12/31/17 18:18 - Constitutional Appears: Well, Non-toxic, No Acute Distress - Head Exam Head Exam: ATRAUMATIC, NORMOCEPHALIC - Eye Exam Eye Exam: Normal appearance. absent: Conjunctival injection, Scleral icterus - ENT Exam ENT Exam: Mucous Membranes Moist, Normal Oropharynx - Respiratory Exam Respiratory Exam: NORMAL BREATHING PATTERN. absent: Accessory Muscle Use, Respiratory Distress - GI/Abdominal Exam GI & Abdominal Exam: absent: Distended - Extremities Exam Extremities Exam: absent: Calf Tenderness, Pedal Edema Additional comments: BL chronic skin thickening with superficial ulcerations covered in clean and dry dressings - Neurological Exam Neurological Exam: Alert, Awake, Oriented x3 - Psychiatric Exam Psychiatric exam: Normal Affect, Normal Mood - Skin Skin Exam: Normal Color, Warm Assessment and Plan - Assessment and Plan (Free Text) Assessment: 72M with chronic lower leg ulceration Plan: F/U results of US and CTA of the lower extremities compression stocking and lower extremity elevation dressing changes daily continue antibiotics PRN pain medications further surgical planning pending results of CTA Discussed with Dr. Jonathan Nicolas, PGY2
[2018-01-04] MEDS: Vitamin A/D oint 60G TP PRN (23:04)
[2018-01-05 08:04] LABS: BASO # 0.2 K/uL (0.0-0.2); BASO % 2.6 % (0.0-2.0); EOS # 0.2 K/uL (0.0-0.7); EOS % 3.2 % (0.0-4.0); HEMOGLOBIN 11.3 g/dL (12.0-18.0); LYMPH # 3.1 K/uL (1.0-4.3); LYMPH % 44.6 % (20.0-40.0); MEAN CELL VOLUME 82.1 fL (80.0-94.0); MEAN CORPUSCULAR HGB CONC 34.1 g/dL (33.0-37.0); MEAN PLATELET VOLUME 9.3 fL (7.2-11.7); MONO # 2.6 K/uL (0.0-0.8); MONO % 37.9 % (0.0-10.0); NEUT # 0.8 K/uL (1.8-7.0); NEUT % 11.7 % (50.0-75.0); NRBC % 0.2 % (0.0-2.0); PLATELET COUNT 331 K/uL (130-400); RBC 4.04 Mil/uL (4.40-5.90); RED CELL DISTRIBUTION WIDTH 31.7 % (11.5-14.5); WHITE BLOOD COUNT 6.9 K/uL (4.8-10.8)
--- NOTE | 2018-01-05 08:34 | VASCLAB ---
STUDY DESCRIPTION: HISTORY: non-healing LLE ulcers PRIORS: None. TECHNIQUE: Pulse volume recording waveforms and segmental pressures of bilateral lower extremities at multiple levels were obtained. Ankle Brachial Indices (ABIs) were calculated. Report prepared by TRACI Mejia, RVT RIGHT LOWER EXTREMITY: * Brachial artery: Pressure - 127 mmHg. * High thigh: Pressure - 152 mmHg: Ratio - 1.15: PVR waveform - Pulsatile * Low thigh: Pressure - 154 mmHg: Ratio - 1.17 PVR waveform: Pulsatile * Calf: Pressure - 159 mmHg: Ratio - 1.20 PVR waveform: Pulsatile * Posterior tibial Artery: Pressure - 132 mmHg: Ratio - 1.00 PVR waveform: Pulsatile * Dorsalis pedis Artery: Pressure - 122 mmHg: Ratio - 0.92 PVR waveform: Pulsatile * Great toe: Pressure - mmHg: Ratio - PVR waveform: Ankle brachial index (CLAIR): 1.00 LEFT LOWER EXTREMITY: * Brachial artery: Pressure - 132 mmHg. * High thigh: Pressure - 153 mmHg: Ratio - 1.16: PVR waveform - Pulsatile * Low thigh: Pressure - 148 mmHg: Ratio - 1.12 PVR waveform: Pulsatile * Calf: Pressure - 145 mmHg: Ratio - 1.10 PVR waveform: Pulsatile * Posterior tibial Artery: Pressure - 143 mmHg: Ratio - 1.08 PVR waveform: Pulsatile * Dorsalis pedis Artery: Pressure - 143 mmHg: Ratio - 1.08 PVR waveform: Pulsatile * Great toe: Pressure - mmHg: Ratio - PVR waveform: Ankle brachial index (CLAIR): 1.08 OTHER FINDINGS: Right: Left: IMPRESSION: Right: There was no evidence of hemodynamically significant arterial insufficiency in the right lower extremity. Left: There was no evidence of hemodynamically significant arterial insufficiency in the left lower extremity.
[2018-01-05 08:38] LABS: ALB/GLOB RATIO 0.7 (1.0-2.1); ALBUMIN 3.6 g/dL (3.5-5.0); ALT/SGPT 34 U/L (21-72); AST/SGOT 43 U/L (17-59); BLOOD UREA NITROGEN 23 mg/dL (9-20); CALCIUM 7.9 mg/dl (8.6-10.4); GFR AFRICAN-AMERICAN > 60; GFR NON-AFRICAN AMERICAN > 60
[2018-01-05 08:44] LABS: BASOPHIL 2 % (0-2); EOSINOPHIL 5 % (0-4); LYMPHOCYTE 42 % (20-40); MONOCYTE 39 % (0-10); NEUTROPHIL 12 % (50-75); TOTAL CELLS COUNTED 100
[2018-01-05 08:45] LABS: ANISOCYTOSIS MARKED; OVALOCYTES SLIGHT; PLATELET ESTIMATE NORMAL (NORMAL); POIKILOCYTOSIS SLIGHT; TARGET CELLS SLIGHT
[2018-01-05] MEDS: Saccharomyces Boulardi 250 mg Cap PO SCH ×2 (09:03→17:44)
[2018-01-05] MEDS: Enoxaparin 100 mg Syringe SC SCH ×2 (09:03→22:28)
[2018-01-05] MEDS: Pantoprazole 40 mg EC Tab PO SCH (09:04)
--- NOTE | 2018-01-05 09:06 | CT ---
PROCEDURE: CT Angiography Abdomen, Pelvis and Lower Extremity with Contrast HISTORY: non-healing LLE ulcers COMPARISON: None. TECHNIQUE: Technique: CT angiography of the abdomen, pelvis and bilateral lower extremities performed in the arterial phase of enhancement. Coronal and sagittal reformats, and well as rotating MIP images of the vessels generated at the workstation. Intravenous contrast dose: 150 mL Visipaque 320 Radiation dose: Total exam DLP = 2104.6 mGy-cm. This CT exam was performed using one or more of the following dose reduction techniques: Automated exposure control, adjustment of the mA and/or kV according to patient size, and/or use of iterative reconstruction technique. FINDINGS: CT ANGIOGRAPHY: ABDOMINAL AORTA:: Calcific and noncalcific atherosclerosis without aneurysm or stenosis. MAJOR AORTIC BRANCHES: Celiac Holiday: Mild ostial calcific atherosclerosis Superior mesenteric artery: Unremarkable. Inferior mesenteric artery: Unremarkable. Renal arteries: Mild left ostial calcific atherosclerosis. PELVIC ARTERIES: Right Common Iliac: Calcific atherosclerosis, widely patent Right External Iliac: Calcific atherosclerosis, widely patent Right Internal Iliac: Calcific atherosclerosis, widely patent. Left Common Iliac: Calcific atherosclerosis, widely patent. Left External Iliac: Calcific atherosclerosis, widely patent. Left Internal Iliac: Calcific atherosclerosis, widely patent. RIGHT LOWER EXTREMITY ARTERIES: Right Common Femoral: Unremarkable. Right Superficial Femoral: Unremarkable. Right Profunda Femoris: Unremarkable. Right Popliteal:Unremarkable. Right Anterior Tibial: Small in caliber, occluded in mid and distal portions. Right Tibioperoneal Trunk: Unremarkable. Right Posterior Tibial: Unremarkable. Right Peroneal: Unremarkable. Right dorsalis pedis : Occluded. LEFT LOWER EXTREMITY ARTERIES: Left Common Femoral: Unremarkable. Left Superficial Femoral: Unremarkable. Left Profunda Femoris: Unremarkable. Left Popliteal: Unremarkable. Left Anterior Tibial: Tandem stenoses with focal occlusion in the midportion with reconstitution. Left Tibioperoneal Trunk: Unremarkable. Left Posterior Tibial: Unremarkable. Left Peroneal: Unremarkable. Left Dorsalis pedis: Unremarkable. NON-ANGIOGRAPHIC ASPECT OF THE EXAM: LOWER THORAX: Unremarkable. LIVER: Unremarkable. No gross lesion or ductal dilatation. GALLBLADDER AND BILE DUCTS: Unremarkable. PANCREAS: Unremarkable. No gross lesion or ductal dilatation. SPLEEN: Unremarkable. ADRENALS: Unremarkable. No mass. KIDNEYS AND URETERS: Unremarkable. No hydronephrosis. No solid mass. STOMACH AND BOWEL: Unremarkable. No obstruction. No gross mural thickening. APPENDIX: Normal appendix. PERITONEUM: Bilateral right larger than left fat containing inguinal hernias. No free fluid. No free air. LYMPH NODES: Prominent external iliac chain lymph nodes, the largest on left measures 2.5 x 1.3 cm with the largest on the right measures 1.9 x 1.3 cm. Prominent inguinal region lymph nodes, the largest on the left measures 2.7 x 1.9 cm and the largest on the right measures 2.0 x 1.8 cm. BLADDER: Unremarkable. REPRODUCTIVE: Prostatomegaly. BONES: Chronic changes of the bilateral iliac wings right knee arthritic changes. Old left tibia and fibula fractures with posttraumatic changes. Bilateral feet degenerative changes. No acute fracture. OTHER FINDINGS: Left lower quadrant subcutaneous infiltration/ edema. Extensive right worse than left bilateral lower extremity subcutaneous edema. Bilateral lower extremity venous varicosities. Low lying inferior vena cava filter at the level of the iliac bifurcation with extra luminal strut penetration. IMPRESSION: Right lower extremity: Scattered calcific atherosclerosis. Small in caliber right anterior tibial artery with occlusion in the mid/distal portions. Two vessel runoff to the foot. Left lower extremity: Scattered calcific atherosclerosis. Tandem stenoses of the left anterior tibial artery with focal occlusion in the midportion with reconstitution. Three-vessel runoff to the foot. Mild ostial celiac artery left renal artery calcific atherosclerosis. Prominent external iliac chain and inguinal region lymph nodes as described above. Bilateral lower extremity subcutaneous edema, right worse than left, with venous varicosities. Additional findings as above.
--- NOTE | 2018-01-05 11:08 | CP.PCM.PN ---
Subjective - Date & Time of Evaluation Date of Evaluation: 01/05/18 Time of Evaluation: 10:30 - Subjective Subjective: Podiatry progress note- Dr. Raymond 72 yo male with PMHx asthma, HTN, multiple DVTs seen at bedside this AM for b/l LE venous stasis ulcers. Pt is seen resting comfortably at time of visit, on contact precautions for +MRSA wound cx. Denies any pain or discomfort to the legs at this time. Denies f/n/v/c/sob/cp/weakness or dizziness. Objective - Vital Signs/Intake and Output Vital Signs (last 24 hours): Temp Pulse Resp BP Pulse Ox 97.5 F L 78 18 137/86 96 01/05/18 07:00 01/05/18 07:45 01/05/18 07:00 01/05/18 09:04 01/05/18 07:00 Intake and Output: 01/05/18 01/05/18 06:59 18:59 Intake Total 700 Balance 700 - Medications Medications: Current Medications Enoxaparin Sodium (Lovenox) 90 mg SC Q12 [facility] Last Admin: 01/05/18 09:03 Dose: 90 mg Furosemide (Lasix) 40 mg IVP Q12 [facility] Last Admin: 01/05/18 09:04 Dose: 40 mg Vancomycin HCl 500 mg/ Sodium (Chloride) 100 mls @ 67 mls/hr IVPB Q12H [facility] PRN Reason: Protocol Stop: 01/08/18 16:01 Last Admin: 01/05/18 03:52 Dose: 67 mls/hr Mupirocin (Bactroban Ointment) 0 gm TOP BID [facility] Last Admin: 01/05/18 09:06 Dose: 1 applic Pantoprazole Sodium (Protonix Ec Tab) 40 mg PO DAILY [facility] Last Admin: 01/05/18 09:04 Dose: 40 mg Saccharomyces Boulardii (Florastor) 250 mg PO BID [facility] Last Admin: 01/05/18 09:03 Dose: 250 mg Vitamin A (Vitamin A&D) 1 applic TP Q8 PRN PRN Reason: Dry skin Last Admin: 01/04/18 23:04 Dose: 1 applic - Labs Labs: 01/05/18 07:55 01/05/18 07:55 PT 13.1 SECONDS (9.7-12.2) H 12/31/17 18:18 INR 1.1 12/31/17 18:18 APTT 30 SECONDS (21-34) 12/31/17 18:18 - Constitutional Appears: Non-toxic, No Acute Distress - Extremities Exam Extremities Exam: absent: Calf Tenderness Additional comments: B/L LE focused exam: Vasc: DP/PT pulses weakly palpable secondary to b/l edema. Edema noted to be much improved. CFT < 3 seconds to all digits. Skin temperature warm to warm from proximal to distal. Neuro: Epicritic and protective sensation grossly intact b/l Derm: Cicatrix noted to anterior right leg secondary to previous traumatic event with reconstruction. No erythema, purulence, drainage, malodor or other clinical signs of infection appreciated. No clinical signs of infection noted to wound which appears stable at this time. Ulceration to left leg has healed. No malodor, no drainage, no erythema, no other clinical signs of infection noted. No probe to bone, undermining, tracking or tunneling appreciated. MSK: POP to ulceration of left leg. Cicatrix noted to right leg secondary to traumatic reconstruction of leg. Otherwise ROM WNL for age at all major joints without pain - Neurological Exam Neurological Exam: Alert, Awake, Oriented x3 - Psychiatric Exam Psychiatric exam: Normal Affect, Normal Mood Assessment and Plan - Assessment and Plan (Free Text) Assessment: 72 year old male with PMHx asthma, HTN, multiple DVTs seen at bedside for healing venous stasis ulcerations Plan: Pt S/E at the bedside Plan discussed with attending Dr. Raymond Chart labs and vitals reviewed: afebrile, no leukocytosis Multiple DVTs of LLE seen on venous duplex No compressive wound care therapy will be applied at this time given the fact that patient has DVTs Wound stable per podiatry and patient can follow up with Dr. Raymond as outpatient Wounds dressed with mupiricin ointment, xeroform, DSD b/l f/u CTA and vascular plan will follow
--- NOTE | 2018-01-05 11:12 | CP.PCM.PN ---
<Janet Daly - Last Filed: 01/05/18 14:45> Subjective - Date & Time of Evaluation Date of Evaluation: 01/05/18 Time of Evaluation: 11:11 - Subjective Subjective: Progress Note for Dr. Gloria Patient seen and examined at bedside. No acute events overnight. Patient tolerating pain well. Patient has dressing changes by podiatry and wound care. Objective - Vital Signs/Intake and Output Vital Signs (last 24 hours): Temp Pulse Resp BP Pulse Ox 97.5 F L 78 18 137/86 96 01/05/18 07:00 01/05/18 07:45 01/05/18 07:00 01/05/18 09:04 01/05/18 07:00 Intake and Output: 01/05/18 01/05/18 06:59 18:59 Intake Total 700 Balance 700 - Medications Medications: Current Medications Enoxaparin Sodium (Lovenox) 90 mg SC Q12 [facility] Last Admin: 01/05/18 09:03 Dose: 90 mg Furosemide (Lasix) 40 mg IVP Q12 [facility] Last Admin: 01/05/18 09:04 Dose: 40 mg Vancomycin HCl 500 mg/ Sodium (Chloride) 100 mls @ 67 mls/hr IVPB Q12H [facility] PRN Reason: Protocol Stop: 01/08/18 16:01 Last Admin: 01/05/18 03:52 Dose: 67 mls/hr Mupirocin (Bactroban Ointment) 0 gm TOP BID [facility] Last Admin: 01/05/18 09:06 Dose: 1 applic Pantoprazole Sodium (Protonix Ec Tab) 40 mg PO DAILY [facility] Last Admin: 01/05/18 09:04 Dose: 40 mg Saccharomyces Boulardii (Florastor) 250 mg PO BID [facility] Last Admin: 01/05/18 09:03 Dose: 250 mg Vitamin A (Vitamin A&D) 1 applic TP Q8 PRN PRN Reason: Dry skin Last Admin: 01/04/18 23:04 Dose: 1 applic - Labs Labs: 01/05/18 07:55 01/05/18 07:55 PT 13.1 SECONDS (9.7-12.2) H 12/31/17 18:18 INR 1.1 12/31/17 18:18 APTT 30 SECONDS (21-34) 12/31/17 18:18 - Additional Findings Additional findings: Constitutional Appears: Non-toxic, No Acute Distress - Head Exam Head Exam: ATRAUMATIC, NORMAL INSPECTION, NORMOCEPHALIC - Eye Exam Eye Exam: EOMI, Normal appearance - ENT Exam ENT Exam: Mucous Membranes Moist, Normal Exam - Neck Exam Neck Exam: Full ROM, Normal Inspection - Respiratory Exam Respiratory Exam: Clear to Ausculation Bilateral, NORMAL BREATHING PATTERN - Cardiovascular Exam Cardiovascular Exam: REGULAR RHYTHM, +S1, +S2 - GI/Abdominal Exam GI & Abdominal Exam: Soft. absent: Tenderness - Rectal Exam Rectal Exam: NORMAL INSPECTION - Extremities Exam Extremities Exam: Full ROM Additional comments: 1+ pitting edema mottled and hyperkeratosis of lower extremities. left and right anterior leg covered in dressings. Wounds are pink and clean. PT pulses palpable in right lower extremity. Left lower extremity PT and DP pulses were difficult to palpate - Neurological Exam Neurological Exam: Alert, Awake, CN II-XII Intact - Psychiatric Exam Psychiatric exam: Normal Affect, Normal Mood - Skin Skin Exam: Dry, Intact, Normal Color, Warm - Additional Findings Additional findings: - Head Exam Head Exam: ATRAUMATIC - Eye Exam Eye Exam: EOMI, Normal appearance - ENT Exam ENT Exam: Mucous Membranes Moist - Neck Exam Neck Exam: Full ROM - Respiratory Exam Respiratory Exam: NORMAL BREATHING PATTERN. absent: Wheezes - Cardiovascular Exam Cardiovascular Exam: +S1, +S2 Additional comments: occasional premature beats noted; no apparent audible murmur - GI/Abdominal Exam GI & Abdominal Exam: Soft, Normal Bowel Sounds - Extremities Exam Extremities Exam: Full ROM, Tenderness. absent: Pedal Edema Additional comments: Full ROM, wrapped bilaterally c/d/i; Pedal Edema (2+ pitting edema noted extending from feet to approx 4-5 inches below the knee), Tenderness (with superficial palpation). absent: Normal Inspection - Back Exam Back Exam: Full ROM - Neurological Exam Neurological Exam: Awake, Oriented x3 - Psychiatric Exam Psychiatric exam: Normal Affect, Normal Mood - Skin Skin Exam: Dry, Warm. 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 Afebrile, No-acute distress Rule out Osteomyelitis- No evidence of subcutaneous emphysema. Recommendations for further imaging suggested. ESR elevated. Will perform Bone Scan due to contraindications for MRI. (Patient has metal rods in his leg) Podiatry consult, Dr Raymond. * venous stasis ulceration of left leg is secondary to edematous changes * No compressive wound care therapy will be applied at this time given the fact that patient has DVTs * No plans for surgical intervention at this time * Podiatry will continue with local wound care to ulceration site while patient remains in house, Mupirocin, xeroform, DSD b/l * Wound sites stable per podiatry and patient can follow up with Dr. Raymond upon discharge Nursing referral for wound care Blood cultures NEGATIVE up to date Wound cultures POSITIVE for MRSA Imaging: Tibia/Fibula XRAY: No evidence of acute displaced fracture nor dislocation. No obvious cortical destructive changes. Nonspecific soft tissue calcifications. Foot b/l XRAY: Chronic posttraumatic and/or post infectious changes involving the distal right tibia and fibula. Soft tissue calcifications are within distal medical soft tissues of left tibia fibula with no definitive cortical destructive changes. Venous Dopplers - Left partial chronic , non- occlusive DVT of the left common femoral, femoral and popliteal veins. Mild valvular incompetence noted. Part of the study was limited due to swelling. No evidence of DVT in right lower extremity. Refer to complete report. Bone Scan: negative for osteomyelitis Lower extremity ultrasound: No evidence of hemodynamically significant arterial insufficiency in right and left lower extremity. CTA abdomen/pelvis ileofemoral runoff: scattered calcific atherosclerosis. small in caliber right anterior tibial artery with occlusion in the mild/distal portions. two vessel runoff to foot bilaterally. IVC filter is noted near the iliac bifurcation. Surgery team: concern for possible occlusion due to IVC filter. Meds: Zosyn 3.375g IVPB Q6H (Started 01/02/18 - Stopped 01/03/18 due to poor sensitivity) Vancomycin 500mg IVP Q12H (started 01/03/18) On Florastor as well. Lasix 40mg IVP increased to BID Ketorolac 15mg IVP Q6 PRN moderate pain Ketorolac 30mg IVP Q6H PRN severe pain PT Eval and Treat Status: Acute Priority: High Chronic DVT Assessment and Plan: Venous Dopplers- left partial chronic , non- occlusive DVT of the left common femoral, femoral and popliteal veins. Mild valvular incompetence noted. Part of the study was limited due to swelling. No evidence of DVT in right lower extremity. Refer to complete report. Arterial dopplers- Normal Study Elevated D-Dimer 1148. Consult Vascular Surgery, Dr Castillo: surgical team waiting for CLAIR/PVR and CTA ileofemoral runoff for further evaluation. Imaging: CTA PE Protocol- No apparent signs of PE. Per report, many of the distal pulmonary arteries are poorly visualized. Calcified tortuous aorta noted. Refer to complete report. Lower extremity ultrasound: No evidence of hemodynamically significant arterial insufficiency in right and left lower extremity. CTA abdomen/pelvis ileofemoral runoff: scattered calcific atherosclerosis. small in caliber right anterior tibial artery with occlusion in the mild/distal portions. two vessel runoff to foot bilaterally. IVC filter is noted near the iliac bifurcation. Surgery team: concern for possible occlusion due to IVC filter. Mild ostial celiac artery left renal artery calcific atherosclerosis. Bilateral Lower extremity subcutaneous edema with right worse than left with venous varicosities. Meds: Lovenox 90mg SC Q12H Status: Acute Priority: High Suspected Premature atrial beats Assessment and Plan: On Telemetry- Continue to monitor EKG: Sinus rhythm at approx 77 bpm, early signs of repolarization noted. No signs of atrial fibrillation or flutter noted. No ST segment changes noted. Refer to imaging. Labs/Diagnostics: Trop x1 NORMAL ProBNP NORMAL CXR: No active disease ECHO: Left ventricular function is normal. Left Ventricular EF is normal. No regional wall motion abnormalities noted. (4) Prophylactic measure Assessment and Plan: Contraindication to SCDs Lovenox 90mg SC Q12H Heart healthy diet PT Eval and Treat f/u podiatry and surgery recommendations continue with antibiotics Janet Daly DO PGY1 <Surinder Gloria H - Last Filed: 01/05/18 16:04> Objective - Vital Signs/Intake and Output Vital Signs (last 24 hours): Temp Pulse Resp BP Pulse Ox 97.5 F L 78 18 137/86 96 01/05/18 07:00 01/05/18 07:45 01/05/18 07:00 01/05/18 09:04 01/05/18 07:00 Intake and Output: 01/05/18 01/05/18 06:59 18:59 Intake Total 700 Balance 700 - Medications Medications: Current Medications Enoxaparin Sodium (Lovenox) 90 mg SC Q12 [facility] Last Admin: 01/05/18 09:03 Dose: 90 mg Furosemide (Lasix) 40 mg IVP Q12 [facility] Last Admin: 01/05/18 09:04 Dose: 40 mg Vancomycin HCl 500 mg/ Sodium (Chloride) 100 mls @ 67 mls/hr IVPB Q12H [facility] PRN Reason: Protocol Stop: 01/08/18 16:01 Last Admin: 01/05/18 03:52 Dose: 67 mls/hr Mupirocin (Bactroban Ointment) 0 gm TOP BID [facility] Last Admin: 01/05/18 09:06 Dose: 1 applic Pantoprazole Sodium (Protonix Ec Tab) 40 mg PO DAILY [facility] Last Admin: 01/05/18 09:04 Dose: 40 mg Saccharomyces Boulardii (Florastor) 250 mg PO BID [facility] Last Admin: 01/05/18 09:03 Dose: 250 mg Vitamin A (Vitamin A&D) 1 applic TP Q8 PRN PRN Reason: Dry skin Last Admin: 01/04/18 23:04 Dose: 1 applic - Labs Labs: 01/05/18 07:55 01/05/18 07:55 PT 13.1 SECONDS (9.7-12.2) H 12/31/17 18:18 INR 1.1 12/31/17 18:18 APTT 30 SECONDS (21-34) 12/31/17 18:18 Attending/Attestation - Attestation I have personally seen and examined this patient.: Yes I have fully participated in the care of the patient.: Yes I have reviewed all pertinent clinical information, including history, physical exam and plan: Yes Notes (Text): Medical attending: Patient was seen and examined by me. Agree with the above note by the resident. Patient has now undergone CTA with runn off as well as lower extremity arterial dopplers. He did not have any acute concerns or changes overnight. Pain was stable Per discussion with the patient he had the IVC filter placed in many years ago, surgery is concerned about the old filter and is ordering imaging to further assess this as heavy clotting in the filter can also contribute to the edema thank you Surinder Gloria
--- NOTE | 2018-01-05 15:46 | CP.PCM.PN ---
Subjective - Date & Time of Evaluation Date of Evaluation: 01/05/18 Time of Evaluation: 10:00 - Subjective Subjective: Vascular Surgery: Dr. Castillo Pt seen and examined. No acute overnight events. States he feels better. Pt is ambulating and denies pain. Denies other complaints at this time. Denies F/C. Objective - Vital Signs/Intake and Output Vital Signs (last 24 hours): Temp Pulse Resp BP Pulse Ox 97.5 F L 78 18 137/86 96 01/05/18 07:00 01/05/18 07:45 01/05/18 07:00 01/05/18 09:04 01/05/18 07:00 Intake and Output: 01/05/18 01/05/18 06:59 18:59 Intake Total 700 Balance 700 - Medications Medications: Current Medications Enoxaparin Sodium (Lovenox) 90 mg SC Q12 [facility] Last Admin: 01/05/18 09:03 Dose: 90 mg Furosemide (Lasix) 40 mg IVP Q12 [facility] Last Admin: 01/05/18 09:04 Dose: 40 mg Vancomycin HCl 500 mg/ Sodium (Chloride) 100 mls @ 67 mls/hr IVPB Q12H [facility] PRN Reason: Protocol Stop: 01/08/18 16:01 Last Admin: 01/05/18 03:52 Dose: 67 mls/hr Mupirocin (Bactroban Ointment) 0 gm TOP BID [facility] Last Admin: 01/05/18 09:06 Dose: 1 applic Pantoprazole Sodium (Protonix Ec Tab) 40 mg PO DAILY [facility] Last Admin: 01/05/18 09:04 Dose: 40 mg Saccharomyces Boulardii (Florastor) 250 mg PO BID [facility] Last Admin: 01/05/18 09:03 Dose: 250 mg Vitamin A (Vitamin A&D) 1 applic TP Q8 PRN PRN Reason: Dry skin Last Admin: 01/04/18 23:04 Dose: 1 applic - Labs Labs: 01/05/18 07:55 01/05/18 07:55 PT 13.1 SECONDS (9.7-12.2) H 12/31/17 18:18 INR 1.1 12/31/17 18:18 APTT 30 SECONDS (21-34) 12/31/17 18:18 - Constitutional Appears: Well, No Acute Distress - Head Exam Head Exam: ATRAUMATIC, NORMOCEPHALIC - ENT Exam ENT Exam: Mucous Membranes Moist - Respiratory Exam Respiratory Exam: NORMAL BREATHING PATTERN - Cardiovascular Exam Cardiovascular Exam: RRR - GI/Abdominal Exam GI & Abdominal Exam: Soft - Extremities Exam Extremities Exam: Pedal Edema Additional comments: b/l LE venous stasis disease - Neurological Exam Neurological Exam: Alert, Oriented x3 - Skin Skin Exam: Dry, Warm Assessment and Plan - Assessment and Plan (Free Text) Assessment: 72M with b/l LE venous stasis insufficiency Plan: - no surgical intervention at this time for PVD since pt has good collaterals to the lower extremity - will talk to radiology about IVC filter and whether there are clots present in the IVC and if amenable to any intervention - d/w Dr. Jonathan Hull, PGY-3
--- NOTE | 2018-01-06 08:27 | CP.PCM.PN ---
Subjective - Date & Time of Evaluation Date of Evaluation: 01/06/18 Time of Evaluation: 07:05 - Subjective Subjective: Vascular surgery progress note for Dr. Norm Wolf, PGY-1 Pt S & E at bedside. Pt reports no acute events overnight. Is Ambulating, denies pain, tolerating diet. Objective - Vital Signs/Intake and Output Vital Signs (last 24 hours): Temp Pulse Resp BP Pulse Ox 97.5 F L 81 18 153/76 H 100 01/06/18 07:20 01/06/18 07:20 01/06/18 07:20 01/06/18 07:20 01/06/18 07:20 - Medications Medications: Current Medications Acetaminophen (Tylenol 325mg Tab) 650 mg PO Q6 PRN PRN Reason: Pain, moderate (4-7) Enoxaparin Sodium (Lovenox) 90 mg SC Q12 [facility] Last Admin: 01/05/18 22:28 Dose: 90 mg Furosemide (Lasix) 40 mg IVP Q12 [facility] Last Admin: 01/05/18 22:28 Dose: 40 mg Vancomycin HCl 500 mg/ Sodium (Chloride) 100 mls @ 67 mls/hr IVPB Q12H [facility] PRN Reason: Protocol Stop: 01/08/18 16:01 Last Admin: 01/06/18 04:00 Dose: 67 mls/hr Mupirocin (Bactroban Ointment) 0 gm TOP BID [facility] Last Admin: 01/05/18 17:45 Dose: 1 applic Pantoprazole Sodium (Protonix Ec Tab) 40 mg PO DAILY [facility] Last Admin: 01/05/18 09:04 Dose: 40 mg Saccharomyces Boulardii (Florastor) 250 mg PO BID [facility] Last Admin: 01/05/18 17:44 Dose: 250 mg Vitamin A (Vitamin A&D) 1 applic TP Q8 PRN PRN Reason: Dry skin Last Admin: 01/04/18 23:04 Dose: 1 applic - Labs Labs: 01/05/18 07:55 01/05/18 07:55 PT 13.1 SECONDS (9.7-12.2) H 12/31/17 18:18 INR 1.1 12/31/17 18:18 APTT 30 SECONDS (21-34) 12/31/17 18:18 - Constitutional Appears: Non-toxic, No Acute Distress - Head Exam Head Exam: ATRAUMATIC, NORMAL INSPECTION, NORMOCEPHALIC - ENT Exam ENT Exam: Normal Exam - Neck Exam Neck Exam: Full ROM - Respiratory Exam Respiratory Exam: NORMAL BREATHING PATTERN - Cardiovascular Exam Cardiovascular Exam: REGULAR RHYTHM - Extremities Exam Extremities Exam: Full ROM, Pedal Edema (bilaterally) - Neurological Exam Neurological Exam: Alert, Awake, Normal Gait, Oriented x3 - Psychiatric Exam Psychiatric exam: Normal Affect, Normal Mood - Skin Skin Exam: Dry, Intact, Normal Color, Warm Assessment and Plan - Assessment and Plan (Free Text) Assessment: 72M with b/l LE venous stasis insufficiency Plan: No surgical intervention at this time FU IVC and iliac duplex Further recs per attending Will DW attending Maryann, PGY-1
--- NOTE | 2018-01-06 08:50 | CP.PCM.PN ---
<Janet Daly - Last Filed: 01/06/18 08:57> Subjective - Date & Time of Evaluation Date of Evaluation: 01/06/18 Time of Evaluation: 08:49 - Subjective Subjective: Progress Note Patient seen and examined at bedside. No acute events overnight. Patient denies fever, chills, nausea, vomiting, diarrhea Objective - Vital Signs/Intake and Output Vital Signs (last 24 hours): Temp Pulse Resp BP Pulse Ox 97.5 F L 81 18 153/76 H 100 01/06/18 07:20 01/06/18 07:20 01/06/18 07:20 01/06/18 07:20 01/06/18 07:20 - Medications Medications: Current Medications Acetaminophen (Tylenol 325mg Tab) 650 mg PO Q6 PRN PRN Reason: Pain, moderate (4-7) Enoxaparin Sodium (Lovenox) 90 mg SC Q12 [facility] Last Admin: 01/05/18 22:28 Dose: 90 mg Furosemide (Lasix) 40 mg IVP Q12 [facility] Last Admin: 01/05/18 22:28 Dose: 40 mg Vancomycin HCl 500 mg/ Sodium (Chloride) 100 mls @ 67 mls/hr IVPB Q12H ERMA PRN Reason: Protocol Stop: 01/08/18 16:01 Last Admin: 01/06/18 04:00 Dose: 67 mls/hr Mupirocin (Bactroban Ointment) 0 gm TOP BID [facility] Last Admin: 01/05/18 17:45 Dose: 1 applic Pantoprazole Sodium (Protonix Ec Tab) 40 mg PO DAILY [facility] Last Admin: 01/05/18 09:04 Dose: 40 mg Saccharomyces Boulardii (Florastor) 250 mg PO BID [facility] Last Admin: 01/05/18 17:44 Dose: 250 mg Vitamin A (Vitamin A&D) 1 applic TP Q8 PRN PRN Reason: Dry skin Last Admin: 01/04/18 23:04 Dose: 1 applic - Labs Labs: 01/05/18 07:55 01/05/18 07:55 PT 13.1 SECONDS (9.7-12.2) H 12/31/17 18:18 INR 1.1 12/31/17 18:18 APTT 30 SECONDS (21-34) 12/31/17 18:18 - Additional Findings Additional findings: Constitutional Appears: Non-toxic, No Acute Distress - Head Exam Head Exam: ATRAUMATIC, NORMAL INSPECTION, NORMOCEPHALIC - Eye Exam Eye Exam: EOMI, Normal appearance - ENT Exam ENT Exam: Mucous Membranes Moist, Normal Exam - Neck Exam Neck Exam: Full ROM, Normal Inspection - Respiratory Exam Respiratory Exam: Clear to Ausculation Bilateral, NORMAL BREATHING PATTERN - Cardiovascular Exam Cardiovascular Exam: REGULAR RHYTHM, +S1, +S2 - GI/Abdominal Exam GI & Abdominal Exam: Soft. absent: Tenderness - Rectal Exam Rectal Exam: NORMAL INSPECTION - Extremities Exam Extremities Exam: Full ROM Additional comments: 1+ pitting edema mottled and hyperkeratosis of lower extremities. left and right anterior leg covered in dressings. Wounds are pink and clean. PT pulses palpable in right lower extremity. Left lower extremity PT and DP pulses were difficult to palpate - Neurological Exam Neurological Exam: Alert, Awake, CN II-XII Intact - Psychiatric Exam Psychiatric exam: Normal Affect, Normal Mood - Skin Skin Exam: Dry, Intact, Normal Color, Warm - Additional Findings Additional findings: - Head Exam Head Exam: ATRAUMATIC - Eye Exam Eye Exam: EOMI, Normal appearance - ENT Exam ENT Exam: Mucous Membranes Moist - Neck Exam Neck Exam: Full ROM - Respiratory Exam Respiratory Exam: NORMAL BREATHING PATTERN. absent: Wheezes - Cardiovascular Exam Cardiovascular Exam: +S1, +S2 Additional comments: occasional premature beats noted; no apparent audible murmur - GI/Abdominal Exam GI & Abdominal Exam: Soft, Normal Bowel Sounds - Extremities Exam Extremities Exam: Full ROM, Tenderness. absent: Pedal Edema Additional comments: Full ROM, wrapped bilaterally c/d/i; Pedal Edema (2+ pitting edema noted extending from feet to approx 4-5 inches below the knee), Tenderness (with superficial palpation). absent: Normal Inspection - Back Exam Back Exam: Full ROM - Neurological Exam Neurological Exam: Awake, Oriented x3 - Psychiatric Exam Psychiatric exam: Normal Affect, Normal Mood - Skin Skin Exam: Dry, Warm. 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 Afebrile, No-acute distress Rule out Osteomyelitis- No evidence of subcutaneous emphysema. Recommendations for further imaging suggested. ESR elevated. Will perform Bone Scan due to contraindications for MRI. (Patient has metal rods in his leg) Podiatry consult, Dr Raymond. * venous stasis ulceration of left leg is secondary to edematous changes * No compressive wound care therapy will be applied at this time given the fact that patient has DVTs * No plans for surgical intervention at this time * Podiatry will continue with local wound care to ulceration site while patient remains in house, Mupirocin, xeroform, DSD b/l * Wound sites stable per podiatry and patient can follow up with Dr. Raymond upon discharge Nursing referral for wound care Blood cultures NEGATIVE up to date Wound cultures POSITIVE for MRSA Imaging: Tibia/Fibula XRAY: No evidence of acute displaced fracture nor dislocation. No obvious cortical destructive changes. Nonspecific soft tissue calcifications. Foot b/l XRAY: Chronic posttraumatic and/or post infectious changes involving the distal right tibia and fibula. Soft tissue calcifications are within distal medical soft tissues of left tibia fibula with no definitive cortical destructive changes. Venous Dopplers - Left partial chronic , non- occlusive DVT of the left common femoral, femoral and popliteal veins. Mild valvular incompetence noted. Part of the study was limited due to swelling. No evidence of DVT in right lower extremity. Refer to complete report. Bone Scan: negative for osteomyelitis Lower extremity ultrasound: No evidence of hemodynamically significant arterial insufficiency in right and left lower extremity. CTA abdomen/pelvis ileofemoral runoff: scattered calcific atherosclerosis. small in caliber right anterior tibial artery with occlusion in the mild/distal portions. two vessel runoff to foot bilaterally. IVC filter is noted near the iliac bifurcation. Surgery team: concern for possible occlusion due to IVC filter. \ f/u iliac and IVC filter duplex Meds: Zosyn 3.375g IVPB Q6H (Started 01/02/18 - Stopped 01/03/18 due to poor sensitivity) Vancomycin 500mg IVP Q12H (started 01/03/18) On Florastor as well. Lasix 40mg IVP increased to BID Ketorolac 15mg IVP Q6 PRN moderate pain Ketorolac 30mg IVP Q6H PRN severe pain PT Eval and Treat Status: Acute Priority: High Chronic DVT Assessment and Plan: Venous Dopplers- left partial chronic , non- occlusive DVT of the left common femoral, femoral and popliteal veins. Mild valvular incompetence noted. Part of the study was limited due to swelling. No evidence of DVT in right lower extremity. Refer to complete report. Arterial dopplers- Normal Study Elevated D-Dimer 1148. Consult Vascular Surgery, Dr Castillo: surgical team waiting for CLAIR/PVR and CTA ileofemoral runoff for further evaluation. Imaging: CTA PE Protocol- No apparent signs of PE. Per report, many of the distal pulmonary arteries are poorly visualized. Calcified tortuous aorta noted. Refer to complete report. Lower extremity ultrasound: No evidence of hemodynamically significant arterial insufficiency in right and left lower extremity. CTA abdomen/pelvis ileofemoral runoff: scattered calcific atherosclerosis. small in caliber right anterior tibial artery with occlusion in the mild/distal portions. two vessel runoff to foot bilaterally. IVC filter is noted near the iliac bifurcation. Surgery team: concern for possible occlusion due to IVC filter. Mild ostial celiac artery left renal artery calcific atherosclerosis. Bilateral Lower extremity subcutaneous edema with right worse than left with venous varicosities. Meds: Lovenox 90mg SC Q12H Status: Acute Priority: High Suspected Premature atrial beats Assessment and Plan: On Telemetry- Continue to monitor EKG: Sinus rhythm at approx 77 bpm, early signs of repolarization noted. No signs of atrial fibrillation or flutter noted. No ST segment changes noted. Refer to imaging. Labs/Diagnostics: Trop x1 NORMAL ProBNP NORMAL CXR: No active disease ECHO: Left ventricular function is normal. Left Ventricular EF is normal. No regional wall motion abnormalities noted. (4) Prophylactic measure Assessment and Plan: Contraindication to SCDs Lovenox 90mg SC Q12H Heart healthy diet PT Eval and Treat f/u podiatry and surgery recommendations continue with antibiotics Janet Daly DO PGY1 <Surinder Gloria H - Last Filed: 01/06/18 15:56> Objective - Vital Signs/Intake and Output Vital Signs (last 24 hours): Temp Pulse Resp BP Pulse Ox 97.5 F L 76 18 134/67 100 01/06/18 07:20 01/06/18 15:48 01/06/18 07:20 01/06/18 09:43 01/06/18 07:20 - Medications Medications: Current Medications Acetaminophen (Tylenol 325mg Tab) 650 mg PO Q6 PRN PRN Reason: Pain, moderate (4-7) Enoxaparin Sodium (Lovenox) 90 mg SC Q12 [facility] Last Admin: 01/06/18 09:34 Dose: 90 mg Furosemide (Lasix) 40 mg IVP Q12 [facility] Last Admin: 01/06/18 09:43 Dose: 40 mg Vancomycin HCl 500 mg/ Sodium (Chloride) 100 mls @ 67 mls/hr IVPB Q12H ERMA PRN Reason: Protocol Stop: 01/08/18 16:01 Last Admin: 01/06/18 04:00 Dose: 67 mls/hr Ketorolac Tromethamine (Toradol) 30 mg IVP Q6 PRN PRN Reason: Pain, moderate (4-7) Last Admin: 01/06/18 09:41 Dose: 30 mg Ketorolac Tromethamine (Toradol) 15 mg IVP Q6H PRN PRN Reason: Pain, Mild (1-3) Mupirocin (Bactroban Ointment) 0 gm TOP BID [facility] Last Admin: 01/06/18 09:42 Dose: Not Given Pantoprazole Sodium (Protonix Ec Tab) 40 mg PO DAILY [facility] Last Admin: 01/06/18 09:34 Dose: 40 mg Saccharomyces Boulardii (Florastor) 250 mg PO BID [facility] Last Admin: 01/06/18 09:34 Dose: 250 mg Vitamin A (Vitamin A&D) 1 applic TP Q8 PRN PRN Reason: Dry skin Last Admin: 01/04/18 23:04 Dose: 1 applic - Labs Labs: 01/06/18 11:15 01/06/18 11:15 PT 13.1 SECONDS (9.7-12.2) H 12/31/17 18:18 INR 1.1 12/31/17 18:18 APTT 30 SECONDS (21-34) 12/31/17 18:18 Attending/Attestation - Attestation I have personally seen and examined this patient.: Yes I have fully participated in the care of the patient.: Yes I have reviewed all pertinent clinical information, including history, physical exam and plan: Yes Notes (Text): 01/06/18 15:56 Medical attending: Patient was seen and examined by me, agrees the above note by the medical policy specialist. Patient was not in any acute distress when we saw him. He was asking us when he would be done in be able to go home. Currently were waiting on imaging to be done on the patient's IVC filter. There are some concern that because of the age of the filter that there could be a lot of clot burden and it may need to be exchanged or removed. From what we've done so far, he does not have osteomyelitis, and he has adequate arterial circulation. 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 This is following injury that he had years ago. He remains on anticoagulation at this time. thank you Surinder Gloria
[2018-01-06] MEDS: Enoxaparin 100 mg Syringe SC SCH ×2 (09:34→21:03)
[2018-01-06] MEDS: Saccharomyces Boulardi 250 mg Cap PO SCH ×2 (09:34→17:28)
[2018-01-06] MEDS: Pantoprazole 40 mg EC Tab PO SCH (09:34)
--- NOTE | 2018-01-06 10:42 | CP.PCM.PN ---
Subjective - Date & Time of Evaluation Date of Evaluation: 01/06/18 Time of Evaluation: 12:10 - Subjective Subjective: Podiatry progress note- Dr. Raymond 72 yo male with PMHx asthma, HTN, multiple DVTs seen today with Dr. Raymond for b/ l venous stasis ulcerations. Pt reports some pain to the legs today, however is controlled with pain meds. Denies f/n/v/c/sob/cp. Offers no other complaints today, Objective - Vital Signs/Intake and Output Vital Signs (last 24 hours): Temp Pulse Resp BP Pulse Ox 97.5 F L 93 H 18 134/67 100 01/06/18 07:20 01/06/18 07:22 01/06/18 07:20 01/06/18 09:43 01/06/18 07:20 - Medications Medications: Current Medications Acetaminophen (Tylenol 325mg Tab) 650 mg PO Q6 PRN PRN Reason: Pain, moderate (4-7) Enoxaparin Sodium (Lovenox) 90 mg SC Q12 [facility] Last Admin: 01/06/18 09:34 Dose: 90 mg Furosemide (Lasix) 40 mg IVP Q12 [facility] Last Admin: 01/06/18 09:43 Dose: 40 mg Vancomycin HCl 500 mg/ Sodium (Chloride) 100 mls @ 67 mls/hr IVPB Q12H [facility] PRN Reason: Protocol Stop: 01/08/18 16:01 Last Admin: 01/06/18 04:00 Dose: 67 mls/hr Ketorolac Tromethamine (Toradol) 30 mg IVP Q6 PRN PRN Reason: Pain, moderate (4-7) Last Admin: 01/06/18 09:41 Dose: 30 mg Ketorolac Tromethamine (Toradol) 15 mg IVP Q6H PRN PRN Reason: Pain, Mild (1-3) Mupirocin (Bactroban Ointment) 0 gm TOP BID [facility] Last Admin: 01/06/18 09:42 Dose: Not Given Pantoprazole Sodium (Protonix Ec Tab) 40 mg PO DAILY [facility] Last Admin: 01/06/18 09:34 Dose: 40 mg Saccharomyces Boulardii (Florastor) 250 mg PO BID [facility] Last Admin: 01/06/18 09:34 Dose: 250 mg Vitamin A (Vitamin A&D) 1 applic TP Q8 PRN PRN Reason: Dry skin Last Admin: 01/04/18 23:04 Dose: 1 applic - Labs Labs: 01/05/18 07:55 01/05/18 07:55 PT 13.1 SECONDS (9.7-12.2) H 12/31/17 18:18 INR 1.1 12/31/17 18:18 APTT 30 SECONDS (21-34) 12/31/17 18:18 - Constitutional Appears: Non-toxic, No Acute Distress - Extremities Exam Extremities Exam: absent: Calf Tenderness Additional comments: B/L LE focused exam: Vasc: DP/PT pulses weakly palpable. Edema noted to be much improved. CFT < 3 seconds to all digits. Skin temperature warm to warm from proximal to distal. Neuro: Epicritic and protective sensation grossly intact b/l Derm: Cicatrix noted to anterior right leg secondary to previous traumatic event with reconstruction. No erythema, purulence, drainage, malodor or other clinical signs of infection appreciated. No clinical signs of infection noted to wound which appears stable at this time. Ulceration to left leg has healed. No malodor, no drainage, no erythema, no other clinical signs of infection noted. No probe to bone, undermining, tracking or tunneling appreciated. MSK:Cicatrix noted to right leg secondary to traumatic reconstruction of leg. Otherwise ROM WNL for age at all major joints without pain - Neurological Exam Neurological Exam: Alert, Awake, Oriented x3 - Psychiatric Exam Psychiatric exam: Normal Affect, Normal Mood Assessment and Plan - Assessment and Plan (Free Text) Assessment: 72 year old male with PMHx asthma, HTN, multiple DVTs seen at bedside for healing venous stasis ulcerations Plan: Pt S/E at the bedside with Dr. Raymond present Chart labs and vitals reviewed: afebrile, no leukocytosis Multiple DVTs of LLE seen on venous duplex dressing D/C'd to left leg, mupiricin, xeroform, DSD and kerlix to right leg Wound stable per podiatry and patient can follow up with Dr. Raymond as outpatient Per vascular team, pt as good collateral arterial flow to b/l LE, awaiting venous duplex to assess IV filter will follow
[2018-01-06 11:31] LABS: HEMOGLOBIN 11.1 g/dL (12.0-18.0); MEAN CORPUSCULAR HGB CONC 33.9 g/dL (33.0-37.0)
[2018-01-06 11:36] LABS: MEAN CELL VOLUME 82.2 fL (80.0-94.0); MEAN CORPUSCULAR HEMOGLOBIN 27.9 pg (27.0-31.0); PLATELET COUNT 330 K/uL (130-400); RBC 3.99 Mil/uL (4.40-5.90); RED CELL DISTRIBUTION WIDTH 31.9 % (11.5-14.5); WHITE BLOOD COUNT 7.5 K/uL (4.8-10.8)
[2018-01-06 12:03] LABS: BASO # 0.2 K/uL (0.0-0.2); EOS # 0.2 K/uL (0.0-0.7); LYMPH # 2.6 K/uL (1.0-4.3); NEUT # 1.7 K/uL (1.8-7.0)
[2018-01-06 12:04] LABS: ALB/GLOB RATIO 0.8 (1.0-2.1); ALBUMIN 3.9 g/dL (3.5-5.0); ALT/SGPT 57 U/L (21-72); AST/SGOT 70 U/L (17-59); BLOOD UREA NITROGEN 22 mg/dL (9-20); CALCIUM 8.1 mg/dl (8.6-10.4); GFR AFRICAN-AMERICAN > 60; GFR NON-AFRICAN AMERICAN > 60; MONO # 2.8 K/uL (0.0-0.8)
[2018-01-06 12:06] LABS: ANISOCYTOSIS MARKED; BANDS 5 % (0-2); BASOPHIL 3 % (0-2); EOSINOPHIL 3 % (0-4); LYMPHOCYTE 35 % (20-40); MONOCYTE 37 % (0-10); NEUTROPHIL 17 % (50-75); PLATELET ESTIMATE NORMAL (NORMAL); POIKILOCYTOSIS SLIGHT; TOTAL CELLS COUNTED 100
[2018-01-06 12:08] LABS: LARGE PLATELETS PRESENT; OVALOCYTES SLIGHT; TARGET CELLS SLIGHT
[2018-01-06] MEDS ORDERED: Potassium Chloride 20 mEq ER Tab PO ONE (13:43)
[2018-01-06] MEDS: Vitamin A/D oint 60G TP PRN (17:30)
[2018-01-07 08:36] LABS: HEMOGLOBIN 10.3 g/dL (12.0-18.0); MEAN CELL VOLUME 81.9 fL (80.0-94.0); MEAN CORPUSCULAR HEMOGLOBIN 27.6 pg (27.0-31.0); MEAN CORPUSCULAR HGB CONC 33.7 g/dL (33.0-37.0); MEAN PLATELET VOLUME 9.1 fL (7.2-11.7); PLATELET COUNT 327 K/uL (130-400); RBC 3.75 Mil/uL (4.40-5.90); RED CELL DISTRIBUTION WIDTH 31.5 % (11.5-14.5); WHITE BLOOD COUNT 7.2 K/uL (4.8-10.8)
[2018-01-07 08:43] LABS: ALB/GLOB RATIO 0.8 (1.0-2.1); ALBUMIN 3.5 g/dL (3.5-5.0); ALT/SGPT 59 U/L (21-72); AST/SGOT 60 U/L (17-59); BLOOD UREA NITROGEN 20 mg/dL (9-20); GFR AFRICAN-AMERICAN > 60; GFR NON-AFRICAN AMERICAN > 60
--- NOTE | 2018-01-07 09:16 | CP.PCM.PN ---
<MalikaJanet - Last Filed: 01/07/18 10:38> Subjective - Date & Time of Evaluation Date of Evaluation: 01/07/18 Time of Evaluation: 09:15 - Subjective Subjective: Progress Note Patient seen and examined at bedside. No acute events overnight. Patient is aware we are waiting on duplex of ivc filter and iliacs. Patient denies fever, chills, nausea, vomiting, diarrhea Objective - Vital Signs/Intake and Output Vital Signs (last 24 hours): Temp Pulse Resp BP Pulse Ox 98.0 F 85 18 112/70 97 01/07/18 07:10 01/07/18 07:10 01/07/18 07:10 01/07/18 07:10 01/07/18 07:10 Intake and Output: 01/07/18 01/07/18 06:59 18:59 Intake Total 800 Balance 800 - Medications Medications: Current Medications Acetaminophen (Tylenol 325mg Tab) 650 mg PO Q6 PRN PRN Reason: Pain, moderate (4-7) Enoxaparin Sodium (Lovenox) 90 mg SC Q12 [facility] Last Admin: 01/06/18 21:03 Dose: 90 mg Furosemide (Lasix) 40 mg IVP Q12 [facility] Last Admin: 01/06/18 21:02 Dose: 40 mg Vancomycin HCl 500 mg/ Sodium (Chloride) 100 mls @ 67 mls/hr IVPB Q12H ERMA PRN Reason: Protocol Stop: 01/08/18 16:01 Last Admin: 01/07/18 04:07 Dose: 67 mls/hr Ketorolac Tromethamine (Toradol) 30 mg IVP Q6 PRN PRN Reason: Pain, moderate (4-7) Last Admin: 01/06/18 17:32 Dose: 30 mg Ketorolac Tromethamine (Toradol) 15 mg IVP Q6H PRN PRN Reason: Pain, Mild (1-3) Mupirocin (Bactroban Ointment) 0 gm TOP BID [facility] Last Admin: 01/06/18 17:29 Dose: 1 applic Pantoprazole Sodium (Protonix Ec Tab) 40 mg PO DAILY [facility] Last Admin: 01/06/18 09:34 Dose: 40 mg Saccharomyces Boulardii (Florastor) 250 mg PO BID [facility] Last Admin: 01/06/18 17:28 Dose: 250 mg Vitamin A (Vitamin A&D) 1 applic TP Q8 PRN PRN Reason: Dry skin Last Admin: 01/06/18 17:30 Dose: 1 applic - Labs Labs: 01/07/18 08:19 01/07/18 08:19 PT 13.1 SECONDS (9.7-12.2) H 12/31/17 18:18 INR 1.1 12/31/17 18:18 APTT 30 SECONDS (21-34) 12/31/17 18:18 - Additional Findings Additional findings: Constitutional Appears: Non-toxic, No Acute Distress - Head Exam Head Exam: ATRAUMATIC, NORMAL INSPECTION, NORMOCEPHALIC - Eye Exam Eye Exam: EOMI, Normal appearance - ENT Exam ENT Exam: Mucous Membranes Moist, Normal Exam - Neck Exam Neck Exam: Full ROM, Normal Inspection - Respiratory Exam Respiratory Exam: Clear to Ausculation Bilateral, NORMAL BREATHING PATTERN - Cardiovascular Exam Cardiovascular Exam: REGULAR RHYTHM, +S1, +S2 - GI/Abdominal Exam GI & Abdominal Exam: Soft. absent: Tenderness - Rectal Exam Rectal Exam: NORMAL INSPECTION - Extremities Exam Extremities Exam: Full ROM Additional comments: 1+ pitting edema mottled and hyperkeratosis of lower extremities. left and right anterior leg covered in dressings. Wounds are pink and clean. PT pulses palpable in right lower extremity. Left lower extremity PT and DP pulses were difficult to palpate - Neurological Exam Neurological Exam: Alert, Awake, CN II-XII Intact - Psychiatric Exam Psychiatric exam: Normal Affect, Normal Mood - Skin Skin Exam: Dry, Intact, Normal Color, Warm - Additional Findings Additional findings: - Head Exam Head Exam: ATRAUMATIC - Eye Exam Eye Exam: EOMI, Normal appearance - ENT Exam ENT Exam: Mucous Membranes Moist - Neck Exam Neck Exam: Full ROM - Respiratory Exam Respiratory Exam: NORMAL BREATHING PATTERN. absent: Wheezes - Cardiovascular Exam Cardiovascular Exam: +S1, +S2 Additional comments: occasional premature beats noted; no apparent audible murmur - GI/Abdominal Exam GI & Abdominal Exam: Soft, Normal Bowel Sounds - Extremities Exam Extremities Exam: Full ROM, Tenderness. absent: Pedal Edema Additional comments: Full ROM, wrapped bilaterally c/d/i; Pedal Edema (2+ pitting edema noted extending from feet to approx 4-5 inches below the knee), Tenderness (with superficial palpation). absent: Normal Inspection - Back Exam Back Exam: Full ROM - Neurological Exam Neurological Exam: Awake, Oriented x3 - Psychiatric Exam Psychiatric exam: Normal Affect, Normal Mood - Skin Skin Exam: Dry, Warm. 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 Afebrile, No-acute distress Rule out Osteomyelitis- No evidence of subcutaneous emphysema. Recommendations for further imaging suggested. ESR elevated. Will perform Bone Scan due to contraindications for MRI. (Patient has metal rods in his leg) Podiatry consult, Dr Raymond. * venous stasis ulceration of left leg is secondary to edematous changes * No compressive wound care therapy will be applied at this time given the fact that patient has DVTs * No plans for surgical intervention at this time * Podiatry will continue with local wound care to ulceration site while patient remains in house, Mupirocin, xeroform, DSD b/l * Wound sites stable per podiatry and patient can follow up with Dr. Raymond upon discharge Nursing referral for wound care Blood cultures NEGATIVE up to date Wound cultures POSITIVE for MRSA Imaging: Tibia/Fibula XRAY: No evidence of acute displaced fracture nor dislocation. No obvious cortical destructive changes. Nonspecific soft tissue calcifications. Foot b/l XRAY: Chronic posttraumatic and/or post infectious changes involving the distal right tibia and fibula. Soft tissue calcifications are within distal medical soft tissues of left tibia fibula with no definitive cortical destructive changes. Venous Dopplers - Left partial chronic , non- occlusive DVT of the left common femoral, femoral and popliteal veins. Mild valvular incompetence noted. Part of the study was limited due to swelling. No evidence of DVT in right lower extremity. Refer to complete report. Bone Scan: negative for osteomyelitis Lower extremity ultrasound: No evidence of hemodynamically significant arterial insufficiency in right and left lower extremity. CTA abdomen/pelvis ileofemoral runoff: scattered calcific atherosclerosis. small in caliber right anterior tibial artery with occlusion in the mild/distal portions. two vessel runoff to foot bilaterally. IVC filter is noted near the iliac bifurcation. Surgery team: concern for possible occlusion due to IVC filter. 4/6 iliac and IVC filter duplex Meds: Zosyn 3.375g IVPB Q6H (Started 01/02/18 - Stopped 01/03/18 due to poor sensitivity) Vancomycin 500mg IVP Q12H (started 01/03/18) On Florastor as well. Lasix 40mg IVP increased to BID Ketorolac 15mg IVP Q6 PRN moderate pain Ketorolac 30mg IVP Q6H PRN severe pain PT Eval and Treat Status: Acute Priority: High Chronic DVT Assessment and Plan: Venous Dopplers- left partial chronic , non- occlusive DVT of the left common femoral, femoral and popliteal veins. Mild valvular incompetence noted. Part of the study was limited due to swelling. No evidence of DVT in right lower extremity. Refer to complete report. Arterial dopplers- Normal Study Elevated D-Dimer 1148. Consult Vascular Surgery, Dr Castillo: surgical team waiting for CLAIR/PVR and CTA ileofemoral runoff for further evaluation. Imaging: CTA PE Protocol- No apparent signs of PE. Per report, many of the distal pulmonary arteries are poorly visualized. Calcified tortuous aorta noted. Refer to complete report. Lower extremity ultrasound: No evidence of hemodynamically significant arterial insufficiency in right and left lower extremity. CTA abdomen/pelvis ileofemoral runoff: scattered calcific atherosclerosis. small in caliber right anterior tibial artery with occlusion in the mild/distal portions. two vessel runoff to foot bilaterally. IVC filter is noted near the iliac bifurcation. Surgery team: concern for possible occlusion due to IVC filter. Mild ostial celiac artery left renal artery calcific atherosclerosis. Bilateral Lower extremity subcutaneous edema with right worse than left with venous varicosities. Meds: Lovenox 90mg SC Q12H Status: Acute Priority: High Suspected Premature atrial beats Assessment and Plan: On Telemetry- Continue to monitor EKG: Sinus rhythm at approx 77 bpm, early signs of repolarization noted. No signs of atrial fibrillation or flutter noted. No ST segment changes noted. Refer to imaging. Labs/Diagnostics: Trop x1 NORMAL ProBNP NORMAL CXR: No active disease ECHO: Left ventricular function is normal. Left Ventricular EF is normal. No regional wall motion abnormalities noted. (4) Prophylactic measure Assessment and Plan: Contraindication to SCDs Lovenox 90mg SC Q12H Heart healthy diet PT Eval and Treat f/u podiatry and surgery recommendations continue with antibiotics Janet Daly DO PGY1 <JuaniSurinder H - Last Filed: 01/07/18 15:24> Objective - Vital Signs/Intake and Output Vital Signs (last 24 hours): Temp Pulse Resp BP Pulse Ox 98.0 F 85 18 112/70 97 01/07/18 07:10 01/07/18 07:10 01/07/18 07:10 01/07/18 07:10 01/07/18 07:10 Intake and Output: 01/07/18 01/07/18 06:59 18:59 Intake Total 800 Balance 800 - Medications Medications: Current Medications Acetaminophen (Tylenol 325mg Tab) 650 mg PO Q6 PRN PRN Reason: Pain, moderate (4-7) Enoxaparin Sodium (Lovenox) 90 mg SC Q12 [facility] Last Admin: 01/06/18 21:03 Dose: 90 mg Furosemide (Lasix) 40 mg IVP Q12 [facility] Last Admin: 01/06/18 21:02 Dose: 40 mg Vancomycin HCl 500 mg/ Sodium (Chloride) 100 mls @ 67 mls/hr IVPB Q12H ERMA PRN Reason: Protocol Stop: 01/08/18 16:01 Last Admin: 01/07/18 04:07 Dose: 67 mls/hr Mupirocin (Bactroban Ointment) 0 gm TOP BID [facility] Last Admin: 01/06/18 17:29 Dose: 1 applic Pantoprazole Sodium (Protonix Ec Tab) 40 mg PO DAILY [facility] Last Admin: 01/06/18 09:34 Dose: 40 mg Saccharomyces Boulardii (Florastor) 250 mg PO BID [facility] Last Admin: 01/06/18 17:28 Dose: 250 mg Tramadol HCl (Ultram) 25 mg PO TID PRN PRN Reason: Pain, severe (8-10) Vitamin A (Vitamin A&D) 1 applic TP Q8 PRN PRN Reason: Dry skin Last Admin: 01/06/18 17:30 Dose: 1 applic - Labs Labs: 01/07/18 08:19 01/07/18 08:19 PT 13.1 SECONDS (9.7-12.2) H 12/31/17 18:18 INR 1.1 12/31/17 18:18 APTT 30 SECONDS (21-34) 12/31/17 18:18 Attending/Attestation - Attestation I have personally seen and examined this patient.: Yes I have fully participated in the care of the patient.: Yes I have reviewed all pertinent clinical information, including history, physical exam and plan: Yes Notes (Text): 01/07/18 15:23 Medical attending: The patient was seen and examined by me, agrees the above note by the electromedical service engineer. When we saw the patient in the morning, he had are underwent imaging to assess his IVC filter. The report is currently pending at this moment. Surgeries considering replacing or removing the IVC filter depending on the results of the study Other than this he reports feeling fine. He denied any chest pain, denied shortness of breath. Later on in the day, podiatry came and were changing the wounds of the patient' s foot. Thank you very much, Surinder Gloria
[2018-01-07 09:28] LABS: BASO % 2.5 % (0.0-2.0); EOS % 3.8 % (0.0-4.0); LYMPH % 41.6 % (20.0-40.0); NEUT # 0.9 K/uL (1.8-7.0); NEUT % 12.1 % (50.0-75.0)
[2018-01-07 09:29] LABS: BASO # 0.2 K/uL (0.0-0.2); EOS # 0.3 K/uL (0.0-0.7); MONO # 2.9 K/uL (0.0-0.8)
[2018-01-07 10:24] LABS: BASOPHIL 2 % (0-2); EOSINOPHIL 1 % (0-4); LYMPHOCYTE 35 % (20-40); MONOCYTE 44 % (0-10); NEUTROPHIL 18 % (50-75); TOTAL CELLS COUNTED 100
[2018-01-07 10:26] LABS: ANISOCYTOSIS MARKED; PLATELET ESTIMATE NORMAL (NORMAL)
[2018-01-07 10:28] LABS: HYPOCHROMIC SLIGHT; OVALOCYTES SLIGHT; POIKILOCYTOSIS SLIGHT; POLYCHROMIC SLIGHT
[2018-01-07 10:29] LABS: TOXIC GRANULATION PRESENT
[2018-01-07 10:30] LABS: LARGE PLATELETS PRESENT
[2018-01-07] MEDS: Pantoprazole 40 mg EC Tab PO SCH (12:30)
[2018-01-07] MEDS: Saccharomyces Boulardi 250 mg Cap PO SCH ×2 (12:30→17:13)
[2018-01-07] MEDS ORDERED: Tramadol 25 mg PO PRN ×2 (13:50→13:59)
--- NOTE | 2018-01-07 14:04 | CP.PCM.PN ---
Subjective - Date & Time of Evaluation Date of Evaluation: 01/07/18 Time of Evaluation: 07:20 - Subjective Subjective: Patient seen and examined this AM. No adverse events overnight. Patient denies pain, dressing are being changed by podiatry Objective - Vital Signs/Intake and Output Vital Signs (last 24 hours): Temp Pulse Resp BP Pulse Ox 98.0 F 85 18 112/70 97 01/07/18 07:10 01/07/18 07:10 01/07/18 07:10 01/07/18 07:10 01/07/18 07:10 Intake and Output: 01/07/18 01/07/18 06:59 18:59 Intake Total 800 Balance 800 - Medications Medications: Current Medications Acetaminophen (Tylenol 325mg Tab) 650 mg PO Q6 PRN PRN Reason: Pain, moderate (4-7) Enoxaparin Sodium (Lovenox) 90 mg SC Q12 [facility] Last Admin: 01/06/18 21:03 Dose: 90 mg Furosemide (Lasix) 40 mg IVP Q12 [facility] Last Admin: 01/06/18 21:02 Dose: 40 mg Vancomycin HCl 500 mg/ Sodium (Chloride) 100 mls @ 67 mls/hr IVPB Q12H ERMA PRN Reason: Protocol Stop: 01/08/18 16:01 Last Admin: 01/07/18 04:07 Dose: 67 mls/hr Mupirocin (Bactroban Ointment) 0 gm TOP BID [facility] Last Admin: 01/06/18 17:29 Dose: 1 applic Pantoprazole Sodium (Protonix Ec Tab) 40 mg PO DAILY [facility] Last Admin: 01/06/18 09:34 Dose: 40 mg Saccharomyces Boulardii (Florastor) 250 mg PO BID [facility] Last Admin: 01/06/18 17:28 Dose: 250 mg Tramadol HCl (Ultram) 25 mg PO TID PRN PRN Reason: Pain, severe (8-10) Vitamin A (Vitamin A&D) 1 applic TP Q8 PRN PRN Reason: Dry skin Last Admin: 01/06/18 17:30 Dose: 1 applic - Labs Labs: 01/07/18 08:19 01/07/18 08:19 PT 13.1 SECONDS (9.7-12.2) H 12/31/17 18:18 INR 1.1 12/31/17 18:18 APTT 30 SECONDS (21-34) 12/31/17 18:18 - Constitutional Appears: Well, Non-toxic, No Acute Distress - Head Exam Head Exam: ATRAUMATIC, NORMOCEPHALIC - Eye Exam Eye Exam: Normal appearance. absent: Conjunctival injection, Scleral icterus - ENT Exam ENT Exam: Mucous Membranes Moist, Normal Oropharynx - Respiratory Exam Respiratory Exam: NORMAL BREATHING PATTERN. absent: Accessory Muscle Use, Respiratory Distress - GI/Abdominal Exam GI & Abdominal Exam: absent: Distended - Extremities Exam Additional comments: dressings over lower extremities intact. chronic thickening of lower extremity skin present bilaterally - Neurological Exam Neurological Exam: Alert, Awake, Oriented x3 - Psychiatric Exam Psychiatric exam: Normal Affect, Normal Mood - Skin Skin Exam: Dry, Normal Color, Warm Additional comments: except as noted above Assessment and Plan - Assessment and Plan (Free Text) Assessment: 72M with chronic venous stasus ulcers of the BL LE Plan: -Follow up IVC duplex ultrasound to evaluate for clogged IVC filter -Further surgical planning pending results of ultrasound -Continue wound care per podiatry -Continue PRN pain management -Continue antibiotics per primary -Continue compression stockings and encourage ambulation Discussed with Dr. Jonathan Nicolas, PGY2
[2018-01-07] MEDS: Vitamin A/D oint 60G TP PRN (17:14)
--- NOTE | 2018-01-07 19:30 | VASCLAB ---
PROCEDURE: HISTORY: eval for thrombus/ivcfilter COMPARISON: None available. TECHNIQUE: FINDINGS: Normal phasic flow noted in the IVC and bilateral iliac veins. The known IVC filter is not visualized on the current examination. IMPRESSION: No evidence of deep vein thrombosis or venous obstruction in the abdominal venous vasculature.
[2018-01-07] MEDS: Enoxaparin 100 mg Syringe SC SCH (21:05)
[2018-01-08 08:20] VITALS: BP 114/64; PULSE 92; RESP 18; TEMP 98.3; O2SAT 97
[2018-01-08 08:29] LABS: BASO # 0.2 K/uL (0.0-0.2); BASO % 2.7 % (0.0-2.0); EOS # 0.2 K/uL (0.0-0.7); EOS % 2.3 % (0.0-4.0); HEMOGLOBIN 10.6 g/dL (12.0-18.0); LYMPH # 2.8 K/uL (1.0-4.3); LYMPH % 32.5 % (20.0-40.0); MEAN CELL VOLUME 81.6 fL (80.0-94.0); MEAN CORPUSCULAR HEMOGLOBIN 27.9 pg (27.0-31.0); MEAN CORPUSCULAR HGB CONC 34.3 g/dL (33.0-37.0); MONO # 3.9 K/uL (0.0-0.8); MONO % 45.7 % (0.0-10.0); NEUT # 1.4 K/uL (1.8-7.0); NEUT % 16.8 % (50.0-75.0); NRBC % 0.1 % (0.0-2.0); PLATELET COUNT 340 K/uL (130-400); RBC 3.81 Mil/uL (4.40-5.90); RED CELL DISTRIBUTION WIDTH 32.1 % (11.5-14.5); WHITE BLOOD COUNT 8.5 K/uL (4.8-10.8)
[2018-01-08 08:50] LABS: ALB/GLOB RATIO 0.7 (1.0-2.1); ALBUMIN 3.8 g/dL (3.5-5.0); ALT/SGPT 68 U/L (21-72); AST/SGOT 53 U/L (17-59); BLOOD UREA NITROGEN 13 mg/dL (9-20); CALCIUM 8.3 mg/dl (8.6-10.4); GFR AFRICAN-AMERICAN > 60; GFR NON-AFRICAN AMERICAN > 60
[2018-01-08 09:24] LABS: BASOPHIL 2 % (0-2); EOSINOPHIL 5 % (0-4); LYMPHOCYTE 28 % (20-40); MONOCYTE 44 % (0-10); NEUTROPHIL 20 % (50-75); PLATELET ESTIMATE NORMAL (NORMAL); REACTIVE LYMPHOCYTES 1 % (0-0); TOTAL CELLS COUNTED 100
[2018-01-08 09:25] LABS: ANISOCYTOSIS MARKED; LARGE PLATELETS PRESENT
[2018-01-08 09:29] LABS: HYPOCHROMIC SLIGHT; POLYCHROMIC SLIGHT; SCHISTOCYTES SLIGHT
[2018-01-08 09:30] LABS: TARGET CELLS SLIGHT
[2018-01-08] MEDS: Pantoprazole 40 mg EC Tab PO SCH (09:41)
[2018-01-08] MEDS: Saccharomyces Boulardi 250 mg Cap PO SCH (09:41)
--- NOTE | 2018-01-08 11:25 | CP.PCM.DIS ---
<Skyler RUSHTheresa K - Last Filed: 01/08/18 13:45> Provider - Provider Date of Admission: 12/31/17 19:07 Attending physician: Surinder Gloria DO Consults: Dr. Koffi Raymond Time Spent in preparation of Discharge (in minutes): 35 Diagnosis - Discharge Diagnosis (1) Chronic wound of extremity Status: Acute Priority: High Comment: Patient treated with IV antibiotics from 01/03-01/08. Patient discharged on PO antibiotics for 10 more days. (2) H/O deep venous thrombosis Status: Acute Priority: High Comment: Patient had multiple imaging studies to monitor chronic DVTs as well as IVC filter. Patient re-started on anticoagulation. (3) Infected ulcer of skin Status: Acute Comment: Patient seen by podiatry team while inpatient for wound care. Patient to continue following with solution make up operator for local wound care as outpatient. (4) Leg edema Status: Acute Comment: Patient given IV diuretics during hospitalization and to start PO lasix on discharge. Patient with chronic venous stasis and to continue wearing EMILY stockings. Hospital Course - Lab Results Lab Results: Micro Results 12/31/17 18:50 Blood Blood Culture - Final NO GROWTH AFTER 5 DAYS 12/31/17 18:50 Blood Gram Stain - Final TEST NOT PERFORMED 12/31/17 18:15 Blood Blood Culture - Final NO GROWTH AFTER 5 DAYS 12/31/17 18:15 Blood Gram Stain - Final TEST NOT PERFORMED 12/31/17 20:42 Leg - Left Gram Stain - Final 12/31/17 20:42 Leg - Left Wound Culture - Final Methicillin Resistant S Aureus Most Recent Lab Values WBC 8.5 K/uL (4.8-10.8) 01/08/18 08:15 RBC 3.81 Mil/uL (4.40-5.90) L 01/08/18 08:15 Hgb 10.6 g/dL (12.0-18.0) L 01/08/18 08:15 Hct 31.1 % (35.0-51.0) L 01/08/18 08:15 MCV 81.6 fL (80.0-94.0) 01/08/18 08:15 MCH 27.9 pg (27.0-31.0) 01/08/18 08:15 MCHC 34.3 g/dL (33.0-37.0) 01/08/18 08:15 RDW 32.1 % (11.5-14.5) H 01/08/18 08:15 Plt Count 340 K/uL (130-400) 01/08/18 08:15 MPV 9.0 fL (7.2-11.7) 01/08/18 08:15 Neut % (Auto) 16.8 % (50.0-75.0) L 01/08/18 08:15 Lymph % (Auto) 32.5 % (20.0-40.0) 01/08/18 08:15 Riley % (Auto) 45.7 % (0.0-10.0) H 01/08/18 08:15 Eos % (Auto) 2.3 % (0.0-4.0) 01/08/18 08:15 Baso % (Auto) 2.7 % (0.0-2.0) H 01/08/18 08:15 Neut # (Auto) 1.4 K/uL (1.8-7.0) L 01/08/18 08:15 Lymph # (Auto) 2.8 K/uL (1.0-4.3) 01/08/18 08:15 Riley # (Auto) 3.9 K/uL (0.0-0.8) H 01/08/18 08:15 Eos # (Auto) 0.2 K/uL (0.0-0.7) 01/08/18 08:15 Baso # (Auto) 0.2 K/uL (0.0-0.2) 01/08/18 08:15 Neutrophils % (Manual) 20 % (50-75) L 01/08/18 08:15 Band Neutrophils % 5 % (0-2) H 01/06/18 11:15 Lymphocytes % (Manual) 28 % (20-40) 01/08/18 08:15 Reactive Lymphs % 1 % (0-0) H 01/08/18 08:15 Monocytes % (Manual) 44 % (0-10) H 01/08/18 08:15 Eosinophils % (Manual) 5 % (0-4) H 01/08/18 08:15 Basophils % (Manual) 2 % (0-2) 04/07/18 08:15 Metamyelocytes % 1 % (0-0) H 01/04/18 07:18 Toxic Granulation Present 01/07/18 08:19 Platelet Estimate Normal (NORMAL) 01/08/18 08:15 Large Platelets Present 01/08/18 08:15 Giant Platelets Present 01/02/18 07:59 Polychromasia Slight 01/08/18 08:15 Hypochromasia (manual) Slight 01/08/18 08:15 Poikilocytosis (manual Slight 01/07/18 08:19 Anisocytosis (manual) Marked 01/08/18 08:15 Spherocytes Slight 12/31/17 18:18 Sickle Cells Slight 12/31/17 18:18 Target Cells Slight 01/08/18 08:15 Tear Drop Cells Slight 01/02/18 07:59 Ovalocytes Slight 01/07/18 08:19 Molly Cells Slight 12/31/17 18:18 Acanthocytes (Spur) Slight 12/31/17 18:18 Schistocytes Slight 01/08/18 08:15 ESR 62 mm/hr (0-15) H 01/02/18 07:59 PT 13.1 SECONDS (9.7-12.2) H 12/31/17 18:18 INR 1.1 12/31/17 18:18 APTT 30 SECONDS (21-34) 12/31/17 18:18 D-Dimer, Quantitative 1148 ng/mlDDU (0-243) H 12/31/17 18:18 Sodium 144 mmol/L (132-148) 01/08/18 08:15 Potassium 4.3 mmol/L (3.6-5.2) 01/08/18 08:15 Chloride 106 mmol/L (98-107) 01/08/18 08:15 Carbon Dioxide 25 mmol/L (22-30) 01/08/18 08:15 Anion Gap 17 (10-20) 01/08/18 08:15 BUN 13 mg/dL (9-20) 01/08/18 08:15 Creatinine 0.9 mg/dL (0.8-1.5) 01/08/18 08:15 Est GFR ( Amer) > 60 01/08/18 08:15 Est GFR (Non-Af Amer) > 60 01/08/18 08:15 POC Glucose (mg/dL) 78 mg/dL (65-110) 01/01/18 11:48 Random Glucose 100 mg/dL (75-110) 01/08/18 08:15 Calcium 8.3 mg/dl (8.6-10.4) L 01/08/18 08:15 Phosphorus 3.3 mg/dL (2.5-4.5) 01/08/18 08:15 Magnesium 1.9 mg/dL (1.6-2.3) 01/08/18 08:15 Total Bilirubin 0.5 mg/dL (0.2-1.3) 01/08/18 08:15 AST 53 U/L (17-59) 01/08/18 08:15 ALT 68 U/L (21-72) 01/08/18 08:15 Alkaline Phosphatase 56 U/L (38-126) 01/08/18 08:15 Troponin I < 0.0120 ng/mL (0.00-0.120) 12/31/17 18:18 NT-Pro-B Natriuret Pep 44.1 pg/mL (0-900) 12/31/17 18:18 Total Protein 9.0 g/dL (6.3-8.3) H 01/08/18 08:15 Albumin 3.8 g/dL (3.5-5.0) 01/08/18 08:15 Globulin 5.2 gm/dL (2.2-3.9) H 01/08/18 08:15 Albumin/Globulin Ratio 0.7 (1.0-2.1) L 01/08/18 08:15 Triglycerides 50 mg/dL (0-149) D 01/01/18 07:07 Cholesterol 136 mg/dL (0-199) 01/01/18 07:07 LDL Cholesterol Direct 90 mg/dL (0-129) 01/01/18 07:07 HDL Cholesterol 30 mg/dL (30-70) 01/01/18 07:07 Free T4 1.20 ng/dL (0.78-2.19) 01/01/18 07:07 TSH 3rd Generation 3.89 mIU/L (0.46-4.68) 01/01/18 07:07 Urine Color Colorless (YELLOW) 12/31/17 19:11 Urine Clarity Clear (Clear) 12/31/17 19:11 Urine pH 6.0 (5.0-8.0) 12/31/17 19:11 Ur Specific [place] 1.004 (1.003-1.030) 12/31/17 19:11 Urine Protein Negative mg/dL (NEGATIVE) 12/31/17 19:11 Urine Glucose (UA) Normal mg/dL (Normal) 12/31/17 19:11 Urine Ketones Negative mg/dL (NEGATIVE) 12/31/17 19:11 Urine Blood Negative (NEGATIVE) 12/31/17 19:11 Urine Nitrate Negative (NEGATIVE) 12/31/17 19:11 Urine Bilirubin Negative (NEGATIVE) 12/31/17 19:11 Urine Urobilinogen Normal mg/dL (0.2-1.0) 12/31/17 19:11 Ur Leukocyte Esterase Neg Dara/uL (Negative) 12/31/17 19:11 Urine WBC (Auto) < 1 /hpf (0-5) 12/31/17 19:11 Ur Squamous Epith Cells < 1 /hpf (0-5) 12/31/17 19:11 - Hospital Course Hospital Course: On Admission: Mr Zapien is a 72 year old male with a PMHx of right leg DVT ( diagnosed in 1983) who presents to [facility] because of bilateral leg swelling and pain. 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 He was taking coumadin daily from 1983 until last year when his PMD told him to stop taking it. He also has a IVC filter in the right upper thorax (unsure exactly where). In the past 2 years he noticed increased swelling in the left lower extremity as well (not the DVT leg). 2 weeks ago due to bilateral LE pain he was [place] [facility] [place] he was discharged on antibiotics (unsure which ones). 1 week ago he noticed the bilateral swelling and discomfort to progressively increase thus he decided to come to [facility] ER. He reports 5/10 pain in LE bilaterally. He says he hasn't left the house in a few weeks due to the pain and discomfort. He denies fevers or shortness of breath. He denies chest pain, pleuritic chest pain or calf pain bilaterally. During Hospitalization: Patient had wound cultures positive for MRSA. Patient was treated with IV vancomycin from 01/03/18-01/08/18. Bone scan was done to rule out osteomyelitis. Bone Scan: negative for osteomyelitis Patient was evaluated by vascular surgery team due to history of chronic DVT with IVC filter. Imaging studies were ordered to evaluate lower extremities, circulation, and IVC filter. CTA PE Protocol- No apparent signs of PE. Per report, many of the distal pulmonary arteries are poorly visualized. Calcified tortuous aorta noted. Refer to complete report. Venous Dopplers - Left partial chronic , non- occlusive DVT of the left common femoral, femoral and popliteal veins. Mild valvular incompetence noted. Part of the study was limited due to swelling. No evidence of DVT in right lower extremity. Refer to complete report. Lower extremity ultrasound: No evidence of hemodynamically significant arterial insufficiency in right and left lower extremity. CTA abdomen/pelvis ileofemoral runoff: scattered calcific atherosclerosis. small in caliber right anterior tibial artery with occlusion in the mild/distal portions. two vessel runoff to foot bilaterally. IVC filter is noted near the iliac bifurcation. IVC and Iliac veins duplex- normal phasic flow noted in IVC and bilateral iliac veins. The known IVC filter is not visualized on current examination. No evidence of deep vein thrombosis or venous obstruction in the abdominal venous vasculature. Patient was evaluated by podiatry team for evaluation of venous stasis ulcer. Patient was followed by podiatry team for local wound care. Tibia/Fibula XRAY: No evidence of acute displaced fracture nor dislocation. No obvious cortical destructive changes. Nonspecific soft tissue calcifications. Foot b/l XRAY: Chronic posttraumatic and/or post infectious changes involving the distal right tibia and fibula. Soft tissue calcifications are within distal medical soft tissues of left tibia fibula with no definitive cortical destructive changes. Patient had echo to evaluate for abnormal heart sound auscultated on initial physical examination. surveillance system monitor did not show any arrhythmia. ECHO: Left ventricular function is normal. Left Ventricular EF is normal. No regional wall motion abnormalities noted. ProBNP NORMAL After completion of imaging studies and specialist evaluation, no further intervention was indicated. Patient was re-started on anticoagulation for chronic DVTs, antibiotics for leg wound infection, and lasix for leg swelling. On Discharge: Patient is stable for discharge home per Dr. Gloria. Patient is to follow up with his PMD, Dr. Shaver, within the next one week. Patient is being discharged with following new medications: doxycycline 100mg by mouth twice a day for 10 days, florastor probiotic twice a day for one month, lasix 20mg daily for 7 days, bactroban ointment apply to wounds twice a day, and Eliquis 10mg twice a day for one week followed by 5mg twice a day for remaining duration of treatment. Patient is to return to the ED if his symptoms reoccur or worsen. This was explained to the patient who understands and agrees. This is only a summary of patient's hospitalization, for more detail please see complete record. Discharge Exam - Head Exam Head Exam: ATRAUMATIC, NORMOCEPHALIC - Eye Exam Eye Exam: EOMI - ENT Exam ENT Exam: Mucous Membranes Moist - Respiratory Exam Respiratory Exam: Clear to PA & Lateral - Cardiovascular Exam Cardiovascular Exam: +S1, +S2 - GI/Abdominal Exam GI & Abdominal Exam: Normal Bowel Sounds, Soft. absent: Tenderness - Extremities Exam Extremities exam: pedal edema Additional comments: wrapped bilaterally c/d/i; EMILY stockings on; Pedal Edema (2+ pitting edema noted extending from feet to approx 4-5 inches below the knee) - Neurological Exam Neurological exam: Alert, Oriented x3 - Psychiatric Exam Psychiatric exam: Normal Affect - Skin Skin Exam: Warm Discharge Plan - Discharge Medications Prescriptions: Apixaban [Eliquis] 5 mg PO BID #42 tablet Apixaban [Eliquis] 10 mg PO BID #13 tab Doxycycline Hyclate 100 mg PO Q12H #20 capsule Furosemide [Lasix] 20 mg PO DAILY #7 udc Mupirocin 2% Ointment [Bactroban Ointment] 1 appl TOP BID #1 tube Saccharomyces Boulardi [Florastor] 250 mg PO BID #60 cap - Follow Up Plan Condition: GOOD Disposition: HOME/ ROUTINE Instructions: Saccharomyces boulardii, Dependent Edema (DC), Apixaban, Doxycycline, Furosemide, Mupirocin Additional Instructions: Patient is stable for discharge home per Dr. Gloria. Patient is to follow up with his PMD, Dr. Shaver, within the next one week. Patient is being discharged with following new medications: doxycycline 100mg by mouth twice a day for 10 days, florastor probiotic twice a day for one month, lasix 20mg daily for 7 days, bactroban ointment apply to wounds twice a day, and Eliquis 10mg twice a day for one week followed by 5mg twice a day for remaining duration of treatment. Patient is to return to the ED if his symptoms reoccur or worsen. This was explained to the patient who understands and agrees. Referrals: Taisha Shaver MD [Staff Provider] - Stef Raymond DPM [Staff Provider] - <Surinder Gloria - Last Filed: 01/08/18 17:30> Provider - Provider Date of Admission: 12/31/17 19:07 Attending physician: Surinder Gloria DO Hospital Course - Lab Results Lab Results: Micro Results 12/31/17 18:50 Blood Blood Culture - Final NO GROWTH AFTER 5 DAYS 12/31/17 18:50 Blood Gram Stain - Final TEST NOT PERFORMED 12/31/17 18:15 Blood Blood Culture - Final NO GROWTH AFTER 5 DAYS 12/31/17 18:15 Blood Gram Stain - Final TEST NOT PERFORMED 12/31/17 20:42 Leg - Left Gram Stain - Final 12/31/17 20:42 Leg - Left Wound Culture - Final Methicillin Resistant S Aureus Most Recent Lab Values WBC 8.5 K/uL (4.8-10.8) 01/08/18 08:15 RBC 3.81 Mil/uL (4.40-5.90) L 01/08/18 08:15 Hgb 10.6 g/dL (12.0-18.0) L 01/08/18 08:15 Hct 31.1 % (35.0-51.0) L 01/08/18 08:15 MCV 81.6 fL (80.0-94.0) 01/08/18 08:15 MCH 27.9 pg (27.0-31.0) 01/08/18 08:15 MCHC 34.3 g/dL (33.0-37.0) 01/08/18 08:15 RDW 32.1 % (11.5-14.5) H 01/08/18 08:15 Plt Count 340 K/uL (130-400) 01/08/18 08:15 MPV 9.0 fL (7.2-11.7) 01/08/18 08:15 Neut % (Auto) 16.8 % (50.0-75.0) L 01/08/18 08:15 Lymph % (Auto) 32.5 % (20.0-40.0) 01/08/18 08:15 Riley % (Auto) 45.7 % (0.0-10.0) H 01/08/18 08:15 Eos % (Auto) 2.3 % (0.0-4.0) 01/08/18 08:15 Baso % (Auto) 2.7 % (0.0-2.0) H 01/08/18 08:15 Neut # (Auto) 1.4 K/uL (1.8-7.0) L 01/08/18 08:15 Lymph # (Auto) 2.8 K/uL (1.0-4.3) 01/08/18 08:15 Riley # (Auto) 3.9 K/uL (0.0-0.8) H 01/08/18 08:15 Eos # (Auto) 0.2 K/uL (0.0-0.7) 01/08/18 08:15 Baso # (Auto) 0.2 K/uL (0.0-0.2) 01/08/18 08:15 Neutrophils % (Manual) 20 % (50-75) L 01/08/18 08:15 Band Neutrophils % 5 % (0-2) H 01/06/18 11:15 Lymphocytes % (Manual) 28 % (20-40) 01/08/18 08:15 Reactive Lymphs % 1 % (0-0) H 01/08/18 08:15 Monocytes % (Manual) 44 % (0-10) H 01/08/18 08:15 Eosinophils % (Manual) 5 % (0-4) H 01/08/18 08:15 Basophils % (Manual) 2 % (0-2) 01/08/18 08:15 Metamyelocytes % 1 % (0-0) H 01/04/18 07:18 Toxic Granulation Present 01/07/18 08:19 Platelet Estimate Normal (NORMAL) 01/08/18 08:15 Large Platelets Present 01/08/18 08:15 Giant Platelets Present 01/02/18 07:59 Polychromasia Slight 01/08/18 08:15 Hypochromasia (manual) Slight 01/08/18 08:15 Poikilocytosis (manual Slight 01/07/18 08:19 Anisocytosis (manual) Marked 01/08/18 08:15 Spherocytes Slight 12/31/17 18:18 Sickle Cells Slight 12/31/17 18:18 Target Cells Slight 01/08/18 08:15 Tear Drop Cells Slight 01/02/18 07:59 Ovalocytes Slight 01/07/18 08:19 Molly Cells Slight 12/31/17 18:18 Acanthocytes (Spur) Slight 12/31/17 18:18 Schistocytes Slight 01/08/18 08:15 ESR 62 mm/hr (0-15) H 01/02/18 07:59 PT 13.1 SECONDS (9.7-12.2) H 12/31/17 18:18 INR 1.1 12/31/17 18:18 APTT 30 SECONDS (21-34) 12/31/17 18:18 D-Dimer, Quantitative 1148 ng/mlDDU (0-243) H 12/31/17 18:18 Sodium 144 mmol/L (132-148) 01/08/18 08:15 Potassium 4.3 mmol/L (3.6-5.2) 01/08/18 08:15 Chloride 106 mmol/L (98-107) 01/08/18 08:15 Carbon Dioxide 25 mmol/L (22-30) 01/08/18 08:15 Anion Gap 17 (10-20) 01/08/18 08:15 BUN 13 mg/dL (9-20) 01/08/18 08:15 Creatinine 0.9 mg/dL (0.8-1.5) 01/08/18 08:15 Est GFR ( Amer) > 60 01/08/18 08:15 Est GFR (Non-Af Amer) > 60 01/08/18 08:15 POC Glucose (mg/dL) 78 mg/dL (65-110) 01/01/18 11:48 Random Glucose 100 mg/dL (75-110) 01/08/18 08:15 Calcium 8.3 mg/dl (8.6-10.4) L 01/08/18 08:15 Phosphorus 3.3 mg/dL (2.5-4.5) 01/08/18 08:15 Magnesium 1.9 mg/dL (1.6-2.3) 01/08/18 08:15 Total Bilirubin 0.5 mg/dL (0.2-1.3) 01/08/18 08:15 AST 53 U/L (17-59) 01/08/18 08:15 ALT 68 U/L (21-72) 01/08/18 08:15 Alkaline Phosphatase 56 U/L (38-126) 01/08/18 08:15 Troponin I < 0.0120 ng/mL (0.00-0.120) 12/31/17 18:18 NT-Pro-B Natriuret Pep 44.1 pg/mL (0-900) 12/31/17 18:18 Total Protein 9.0 g/dL (6.3-8.3) H 01/08/18 08:15 Albumin 3.8 g/dL (3.5-5.0) 01/08/18 08:15 Globulin 5.2 gm/dL (2.2-3.9) H 01/08/18 08:15 Albumin/Globulin Ratio 0.7 (1.0-2.1) L 01/08/18 08:15 Triglycerides 50 mg/dL (0-149) D 01/01/18 07:07 Cholesterol 136 mg/dL (0-199) 01/01/18 07:07 LDL Cholesterol Direct 90 mg/dL (0-129) 01/01/18 07:07 HDL Cholesterol 30 mg/dL (30-70) 01/01/18 07:07 Free T4 1.20 ng/dL (0.78-2.19) 01/01/18 07:07 TSH 3rd Generation 3.89 mIU/L (0.46-4.68) 01/01/18 07:07 Urine Color Colorless (YELLOW) 12/31/17 19:11 Urine Clarity Clear (Clear) 12/31/17 19:11 Urine pH 6.0 (5.0-8.0) 12/31/17 19:11 Ur Specific [place] 1.004 (1.003-1.030) 12/31/17 19:11 Urine Protein Negative mg/dL (NEGATIVE) 12/31/17 19:11 Urine Glucose (UA) Normal mg/dL (Normal) 12/31/17 19:11 Urine Ketones Negative mg/dL (NEGATIVE) 12/31/17 19:11 Urine Blood Negative (NEGATIVE) 12/31/17 19:11 Urine Nitrate Negative (NEGATIVE) 12/31/17 19:11 Urine Bilirubin Negative (NEGATIVE) 12/31/17 19:11 Urine Urobilinogen Normal mg/dL (0.2-1.0) 12/31/17 19:11 Ur Leukocyte Esterase Neg Dara/uL (Negative) 12/31/17 19:11 Urine WBC (Auto) < 1 /hpf (0-5) 12/31/17 19:11 Ur Squamous Epith Cells < 1 /hpf (0-5) 12/31/17 19:11 Attending/Attestation - Attestation I have personally seen and examined this patient.: Yes I have fully participated in the care of the patient.: Yes I have reviewed all pertinent clinical information, including history, physical exam and plan: Yes Notes (Text): Medical attending: Patient was seen and examined by me. Agree with the above note by the resident The patient was able to ambulate for us in the room. He reported feeling very well and was eager to go back home The patient will need to take the oral Eliquis twice a day. He had inspection of the the IVC filter via ultrasound and it was reported as being stable. While here he had studies to determine if he could have had osteomylitis - a bone scan was done and was negative. He also had CTA with lower extremity run off done and had patent arteries. Because of the MRSA he will be sent home with additional PO abx as well We advised patient to follow up with her PMD as well as podiatry thank you Surinder Gloria
[2018-01-08] MEDS ORDERED: Pneumococcal 23-Valent Vaccine IM ONE (11:37)
--- NOTE | 2018-01-08 15:09 | CP.PCM.PN ---
Subjective - Date & Time of Evaluation Date of Evaluation: 01/08/18 Time of Evaluation: 12:00 - Subjective Subjective: Podiatry progress note- Dr. Raymond 72 yo male with PMHx asthma, HTN, multiple DVTs seen and evaluated for b/l venous stasis ulcerations. Offers no complaints to bilateral LE today. Dressing clean/dry/intact with EMILY hose present bilaterally. Patient is being discharge today and is aware he is to follow up with Dr. Raymond in the wound care center upon discharge. Denies f/n/v/c/sob/cp. Objective - Vital Signs/Intake and Output Vital Signs (last 24 hours): Temp Pulse Resp BP Pulse Ox 98.3 F 92 H 18 114/64 97 01/08/18 07:30 01/08/18 07:30 01/08/18 07:30 01/08/18 09:41 01/08/18 07:30 Intake and Output: 01/08/18 01/08/18 06:59 18:59 Intake Total 700 Balance 700 - Labs Labs: 01/08/18 08:15 01/08/18 08:15 PT 13.1 SECONDS (9.7-12.2) H 12/31/17 18:18 INR 1.1 12/31/17 18:18 APTT 30 SECONDS (21-34) 12/31/17 18:18 - Constitutional Appears: Well, Non-toxic, No Acute Distress - Extremities Exam Additional comments: B/L LE focused exam: Vasc: DP/PT pulses weakly palpable. Edema noted to be much improved. CFT < 3 seconds to all digits. Skin temperature warm to warm from proximal to distal. Neuro: Epicritic and protective sensation grossly intact b/l Derm: Cicatrix noted to anterior right leg secondary to previous traumatic event with reconstruction. No erythema, purulence, drainage, malodor or other clinical signs of infection appreciated. No clinical signs of infection noted to wound which appears stable at this time. Ulceration to left leg has healed. No malodor, no drainage, no erythema, no other clinical signs of infection noted. No probe to bone, undermining, tracking or tunneling appreciated. MSK:Cicatrix noted to right leg secondary to traumatic reconstruction of leg. Otherwise ROM WNL for age at all major joints without pain - Neurological Exam Neurological Exam: Alert, Awake, Oriented x3 - Psychiatric Exam Psychiatric exam: Normal Affect, Normal Mood Assessment and Plan - Assessment and Plan (Free Text) Assessment: 72 year old male with PMHx asthma, HTN, multiple DVTs seen at bedside for healing venous stasis ulcerations Plan: Pt S/E at the bedside Discussed with attending, Dr. Raymond Chart labs and vitals reviewed: afebrile, no leukocytosis Multiple DVTs of LLE seen on venous duplex dressing D/C'd to left leg, mupiricin, xeroform, DSD and kerlix to right leg Wound stable per podiatry and patient can follow up with Dr. Raymond as outpatient Podiatry will continue to follow
== END 2018-01-08 13:33 | disposition home or self-care (01) | DRG 593 ==
LOC: C.ER 16:57 → C.9E 19:07 → C.6T 19:46 → C.5S 01-03 17:57
PROVIDERS: ADMIT Hospitalist; ATTEND Hospitalist
DX: L97.919 Non-pressure chronic ulcer of unspecified part of right lower leg with unspecified severity (principal); I82.512 Chronic embolism and thrombosis of left femoral vein; I82.532 Chronic embolism and thrombosis of left popliteal vein; L97.929 Non-pressure chronic ulcer of unspecified part of left lower leg with unspecified severity; R79.1 Abnormal coagulation profile; Z86.718 Personal history of other venous thrombosis and embolism; Z79.01 Long term (current) use of anticoagulants; F17.210 Nicotine dependence, cigarettes, uncomplicated; I10 Essential (primary) hypertension; I73.9 Peripheral vascular disease, unspecified; I83.029 Varicose veins of left lower extremity with ulcer of unspecified site; B95.62 Methicillin resistant Staphylococcus aureus infection as the cause of diseases classified elsewhere

== ENCOUNTER 2018-11-29 10:54 | Emergency (ER) | payer MEDICARE ==
[2018-11-29 10:54] VITALS: BMI 26.6
[2018-11-29 11:06] VITALS: TEMP 97.7
--- NOTE | 2018-11-29 11:34 | C.PDOC ---
History Of Present Illness 73 year old male presents to the ED for evaluation of right 5th toe pain which began this morning. Patient states he was getting out of bed when he accidentally struck his toe against a nearby wall. Patient denies calf pain, leg pain, head injury, or dizziness. Time Seen by Provider: 11/29/18 11:13 Chief Complaint (Nursing): Lower Extremity Problem/Injury History Per: Patient History/Exam Limitations: no limitations Onset/Duration Of Symptoms: Hrs Current Symptoms Are (Timing): Still Present Additional History Per: Patient Past Medical History Reviewed: Historical Data, Nursing Documentation, Vital Signs Vital Signs: Last Vital Signs Temp 97.7 F 11/29/18 11:02 Pulse 88 11/29/18 11:02 Resp 20 11/29/18 11:02 BP 167/79 H 11/29/18 11:02 Pulse Ox 99 11/29/18 11:02 - Medical History PMH: Asthma (when younger), HTN (no meds) Denies: Chronic Kidney Disease Surgical History: No Surg Hx - [facility] Procedures C & S-INTEGUMENT (04/19/15) OTHER LOCAL DESTRUC SKIN (06/12/15) Family History: States: Unknown Family Hx - Social History Hx Tobacco Use: No Hx Alcohol Use: No Hx Substance Use: No - Immunization History Hx Tetanus Toxoid Vaccination: Yes Hx Influenza Vaccination: Yes (2018) Hx Pneumococcal Vaccination: No Review Of Systems Musculoskeletal: Positive for: Other (right 5th toe pain). Negative for: Leg Pain Neurological: Negative for: Dizziness, Other (head injury ) Physical Exam - Physical Exam Appears: Non-toxic, No Acute Distress Skin: Normal Color, Warm, Dry Head: Atraumatic, Normacephalic Extremity: Normal ROM (right 5th toe ), Tenderness (mild, to right 5th toe ), No Calf Tenderness, Capillary Refill (less than 2 seconds ), Other (chronic swelling to right lower ankle. Chronic woumnds to dorsal aspect of right foot. ) Neurological/Psych: Normal Speech, Normal Cognition, Normal Sensation ED Course And Treatment O2 Sat by Pulse Oximetry: 99 (on RA) Pulse Ox Interpretation: Normal - Other Rad right foot XR X-Ray: Viewed By Me, Read By Radiologist Interpretation: Date of service: 11/29/2018. PROCEDURE: HISTORY: foot injury, pain to 5th toe. COMPARISON: Bilateral feet 01/01/2018. TECHNIQUE: Three views. FINDINGS: Interval partial dislocation subluxation of the 5th middle phalanx relative to the proximal phalanx. There is a relative radiolucency projecting over the volar aspect of the 5th middle phalangeal cortex. This relative lucency is indeterminate in its possible significance- partial related to fracture and or technique and or even osteomyelitis here. This is an interval change compared the prior study. This also soft tissue swelling of the dorsal lateral forefoot at this level as well-another interval change. Prominent hammertoe orientations and overlapping of the toes obscures bony segment. A small os peroneum noted. Partially visualized is abnormal sclerotic bone mineralization an abnormal contour changes along the lower leg this was present previously-an appearance likely relating to old trauma and old osteomyelitis-of the distal tibia fibular segments. Diffuse lower extremity tissue swelling. IMPRESSION: Partial dislocation/subluxation with suspect fracture of the 5th middle phalanx as detailed above. Possibility of a superimposed volar cortical osteomyelitis is not excluded-evaluation here is limited as detailed above. Clinical correlation and follow-up recommended. Comments: Study marked for PA review . Medical Decision Making Medical Decision Making: Plan: * Right foot XR * Tylenol PO * Motrin PO * reassess and disposition Progress: Right foot XR ordered and reviewed. Tylenol PO and Motrin PO given. Disposition - Disposition Referrals: Yaneli Lopez DPM [Staff Provider] - [facility] [Outside] Disposition: HOME/ ROUTINE Disposition Time: 12:26 Condition: GOOD Additional Instructions: Follow up with the medical doctor within 1-2 days. Return if worsened. 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 - Scribe Statement The provider has reviewed the documentation as recorded by the Scribe All medical record entries made by the Scribe were at my direction and personally dictated by me. I have reviewed the chart and agree that the record accurately reflects my personal performance of the history, physical exam, medical decision making, and the department course for this patient. I have also personally directed, reviewed, and agree with the discharge instructions and disposition.
[2018-11-29 12:37] VITALS: BP 150/88; PULSE 74; RESP 16
--- NOTE | 2018-11-29 12:54 | RAD ---
Date of service: 11/29/2018 PROCEDURE: HISTORY: foot injury, pain to 5th toe COMPARISON: Bilateral feet 01/01/2018 TECHNIQUE: Three views FINDINGS: Interval partial dislocation subluxation of the 5th middle phalanx relative to the proximal phalanx. There is a relative radiolucency projecting over the volar aspect of the 5th middle phalangeal cortex. This relative lucency is indeterminate in its possible significance-partial related to fracture and or technique and or even osteomyelitis here. This is an interval change compared the prior study. This also soft tissue swelling of the dorsal lateral forefoot at this level as well-another interval change. Prominent hammertoe orientations and overlapping of the toes obscures bony segment A small os peroneum noted. Partially visualized is abnormal sclerotic bone mineralization an abnormal contour changes along the lower leg this was present previously-an appearance likely relating to old trauma and old osteomyelitis-of the distal tibia fibular segments. Diffuse lower extremity tissue swelling IMPRESSION: Partial dislocation/subluxation with suspect fracture of the 5th middle phalanx as detailed above. Possibility of a superimposed volar cortical osteomyelitis is not excluded-evaluation here is limited as detailed above. Clinical correlation and follow-up recommended. Comments: Study marked for PA review .
[2018-11-29 13:52] VITALS: O2SAT 99
== END 2018-11-29 12:36 | disposition home or self-care (01) ==
LOC: C.ER 10:54
DX: S92.521A Displaced fracture of middle phalanx of right lesser toe(s), initial encounter for closed fracture (principal); W22.01XA Walked into wall, initial encounter; Y92.003 Bedroom of unspecified non-institutional (private) residence as the place of occurrence of the external cause